=== PATIENT | female | born 1955 | race Caucasian/White ===

== ENCOUNTER 2019-09-01 16:42 | Inpatient (IN) ==
[~2019-09-01 16:42] MED LIST: ETOMIDATE 2 MG/ML 20 ML VIAL IV ONE; RAPID SEQUENCE INDUCTION BAG ONE; SODIUM BICARB 8.4% INJ 50 MEQ/50 ML SYR IV ONE; SUCCINYLCHOLINE CHLORIDE 20 MG/ML 10 ML VIAL IV ONE
[2019-09-01] MEDS ORDERED: PIPERACILL/TAZOBAC CONSULT ACTIVE PRN ×2 (16:59→22:07)
[2019-09-01] MEDS ORDERED: PIPERACILLIN/TAZOBACTAM 4.5 GM/120 ML BAG IV ONE (16:59)
[2019-09-01] MEDS ORDERED: STAT IV Infusion **Titration per Protocol STA ×3 (17:01→22:48)
--- NOTE | 2019-09-01 17:04 | Emergency Department Note ---
History of Present Illness General Chief complaint: Respiratory Arrest Stated complaint: BREATHING DIFF, UNRESPONESIVE Time Seen by Provider: 09/01/19 16:49 Source: family, EMS and old records reviewed Mode of arrival: EMS Limitations: clinical acuity (The patient was in extremis upon arrival.) History of Present Illness The patient is a 64-year-old female who presented to the emergency department for an evaluation of shortness of breath. We received a prehospital notification about this patient. The patient was having difficulty breathing and called 911. The patient was complaining of chest pain initially. The patient was having worsening difficulty breathing prior to arrival. Supplemental oxygen was applied but the patient ultimately started to have worsening symptoms. She started to lose her blood pressure. She was a di fficult IV access patient and had an intraosseous line placed in the left humeral head. She received 1 L of normal saline solution as well as doses of epinephrine. She was actively being bagged upon arrival. She did have return of pulses prior to coming to the resuscitation bay but did receive CPR prior to arrival. The patient offered chest pain complaints to the pellet machine operator. I did obtain further history from the patient's significant other. He was at work today and had no idea that she was calling 911 or having breathing difficulties. The patient has been complaining of cough for the last 6 months. She did not have any recent travel or fever according to the . She has been com plaining of no productive cough or GI symptoms. She has had no headaches. She has had some weakness which was generalized and did have a fall recently but did not strike her head according to her significant other. Home Medications Home Medications Medication Instructions Recorded Confirmed Type atorvastatin 40 mg PO DAILY 09/01/19 09/01/19 History Allergies Allergy/AdvReac Type Severity Reaction Status Date / Time mushroom Allergy Intermediate RASH Unverified 09/01/19 18:58 strawberry Allergy Intermediate Rash Verified 09/01/19 21:20 Past Med/Surg History Medical History HTN, goal to be determined Myocardial infarction acute Surgical History H/O section History of excision of hemangioma Social History Preferred Language: Kazakh Documentation Analyst Required: No Beliefs That Will Affect Care: None Current Living Situation: Family and Significant Other Feels Safe at Home: Declines to Answer Smoking Status: Unknown if ever smoked Review of Systems Unobtainable due to cognitive status History obtained from the prehospital personnel as well as the patient's significant other. History was limited secondary to the patient being in extremis. Physical Exam Vital Signs Vital Signs - 24 hr 09/01/19 17:00 09/01/19 17:01 09/01/19 17:05 Temperature Temperature Source Pulse Rate 117 H 119 H 120 H Pulse Rate [Apical] Pulse Rate from SpO2 Sensor Respiratory Rate 21 29 H 28 H Blood Pressure Blood Pressure [Right Arm] Blood Pressure Mean 25 Blood Pressure Mean [Right Arm] Pulse Oximetry Oxygen Delivery Method Oxygen Flow Rate Fraction of Inspired Oxygen Sepsis Recent Fever Within 48 Hours Sepsis New/Unexplained Change in Mental Status Sepsis Action Taken by Nursing Arterial BP Systolic Arterial BP Diastolic Arterial BP Mean Arterial Pulse Rate End-Tidal CO2 09/01/19 17:08 09/01/19 17:10 09/01/19 17:15 Temperature Temperature Source Pulse Rate 128 H 108 H 122 H Pulse Rate [Apical] Pulse Rate from SpO2 Sensor 108 H 113 H Respiratory Rate 29 H 31 H 26 H Blood Pressure Blood Pressure [Right Arm] Blood Pressure Mean Blood Pressure Mean [Right Arm] Pulse Oximetry 100 98 91 Oxygen Delivery Method Oxygen Flow Rate Fraction of Inspired Oxygen 100 Sepsis Recent Fever Within 48 Hours Sepsis New/Unexplained Change in Mental Status Sepsis Action Taken by Nursing Arterial BP Systolic Arterial BP Diastolic Arterial BP Mean Arterial Pulse Rate End-Tidal CO2 09/01/19 17:20 09/01/19 17:25 09/01/19 17:27 Temperature Temperature Source Pulse Rate 117 H 111 H Pulse Rate [Apical] Pulse Rate from SpO2 Sensor 117 H 111 H Respiratory Rate 30 H 25 H Blood Pressure Blood Pressure [Right Arm] Blood Pressure Mean Blood Pressure Mean [Right Arm] Pulse Oximetry 100 100 100 Oxygen Delivery Method Mechanical Vent Oxygen Flow Rate Fraction of Inspired Oxygen Sepsis Recent Fever Within 48 Hours Sepsis New/Unexplained Change in Mental Status Sepsis Action Taken by Nursing Arterial BP Systolic Arterial BP Diastolic Arterial BP Mean Arterial Pulse Rate End-Tidal CO2 09/01/19 17:28 09/01/19 17:30 09/01/19 17:31 Temperature Temperature Source Pulse Rate 110 H 110 H Pulse Rate [Apical] Pulse Rate from SpO2 Sensor 111 H 110 H Respiratory Rate Blood Pressure Blood Pressure [Right Arm] Blood Pressure Mean 31 Blood Pressure Mean [Right Arm] Pulse Oximetry 100 99 100 Oxygen Delivery Method Mechanical Vent Oxygen Flow Rate Fraction of Inspired Oxygen Sepsis Recent Fever Within 48 Hours Sepsis New/Unexplained Change in Mental Status Sepsis Action Taken by Nursing Arterial BP Systolic Arterial BP Diastolic Arterial BP Mean Arterial Pulse Rate End-Tidal CO2 18 18 09/01/19 17:35 09/01/19 17:40 09/01/19 17:41 Temperature Temperature Source Pulse Rate 110 H 103 H 102 H Pulse Rate [Apical] Pulse Rate from SpO2 Sensor 107 H 104 H Respiratory Rate 26 H Blood Pressure 76/50 L Blood Pressure [Right Arm] Blood Pressure Mean 58 Blood Pressure Mean [Right Arm] Pulse Oximetry 99 99 100 Oxygen Delivery Method Ambu-Bag Oxygen Flow Rate Fraction of Inspired Oxygen Sepsis Recent Fever Within 48 Hours No Sepsis New/Unexplained Change in Mental Status No Sepsis Action Taken by Nursing No Action Required Arterial BP Systolic Arterial BP Diastolic Arterial BP Mean Arterial Pulse Rate End-Tidal CO2 16 16 09/01/19 17:45 09/01/19 17:50 09/01/19 17:55 Temperature Temperature Source Pulse Rate 102 H 97 H 98 H Pulse Rate [Apical] Pulse Rate from SpO2 Sensor 101 H 98 H 98 H Respiratory Rate Blood Pressure Blood Pressure [Right Arm] Blood Pressure Mean Blood Pressure Mean [Right Arm] Pulse Oximetry 99 97 96 Oxygen Delivery Method Oxygen Flow Rate Fraction of Inspired Oxygen Sepsis Recent Fever Within 48 Hours Sepsis New/Unexplained Change in Mental Status Sepsis Action Taken by Nursing Arterial BP Systolic Arterial BP Diastolic Arterial BP Mean Arterial Pulse Rate End-Tidal CO2 20 20 20 09/01/19 18:00 09/01/19 18:03 09/01/19 18:05 Temperature Temperature Source Pulse Rate 72 71 Pulse Rate [Apical] Pulse Rate from SpO2 Sensor 72 71 Respiratory Rate Blood Pressure Blood Pressure [Right Arm] 80/40 L Blood Pressure Mean Blood Pressure Mean [Right Arm] 53 Pulse Oximetry 99 99 Oxygen Delivery Method Oxygen Flow Rate Fraction of Inspired Oxygen Sepsis Recent Fever Within 48 Hours Sepsis New/Unexplained Change in Mental Status Sepsis Action Taken by Nursing Arterial BP Systolic Arterial BP Diastolic Arterial BP Mean Arterial Pulse Rate End-Tidal CO2 23 23 09/01/19 18:10 09/01/19 18:15 09/01/19 18:16 Temperature Temperature Source Pulse Rate 48 L 129 H 129 H Pulse Rate [Apical] Pulse Rate from SpO2 Sensor 51 L 130 H 129 H Respiratory Rate Blood Pressure Blood Pressure [Right Arm] Blood Pressure Mean 71 Blood Pressure Mean [Right Arm] Pulse Oximetry 86 L 92 Oxygen Delivery Method Oxygen Flow Rate Fraction of Inspired Oxygen Sepsis Recent Fever Within 48 Hours Sepsis New/Unexplained Change in Mental Status Sepsis Action Taken by Nursing Arterial BP Systolic Arterial BP Diastolic Arterial BP Mean Arterial Pulse Rate End-Tidal CO2 11 21 21 09/01/19 18:20 09/01/19 18:25 09/01/19 18:30 Temperature Temperature Source Pulse Rate 126 H 119 H 113 H Pulse Rate [Apical] Pulse Rate from SpO2 Sensor 120 H 113 H Respiratory Rate 18 Blood Pressure 80/40 L Blood Pressure [Right Arm] Blood Pressure Mean 53 Blood Pressure Mean [Right Arm] Pulse Oximetry 100 100 Oxygen Delivery Method Oxygen Flow Rate 15 Fraction of Inspired Oxygen Sepsis Recent Fever Within 48 Hours Sepsis New/Unexplained Change in Mental Status Sepsis Action Taken by Nursing Arterial BP Systolic Arterial BP Diastolic Arterial BP Mean Arterial Pulse Rate End-Tidal CO2 19 29 24 09/01/19 18:35 09/01/19 18:38 09/01/19 19:10 Temperature Temperature Source Pulse Rate 108 H 106 H 104 H Pulse Rate [Apical] Pulse Rate from SpO2 Sensor 108 H Respiratory Rate Blood Pressure Blood Pressure [Right Arm] Blood Pressure Mean Blood Pressure Mean [Right Arm] Pulse Oximetry 100 100 Oxygen Delivery Method Oxygen Flow Rate 15 Fraction of Inspired Oxygen Sepsis Recent Fever Within 48 Hours Sepsis New/Unexplained Change in Mental Status Sepsis Action Taken by Nursing Arterial BP Systolic Arterial BP Diastolic Arterial BP Mean Arterial Pulse Rate 0 L End-Tidal CO2 23 21 09/01/19 19:14 09/01/19 19:15 09/01/19 19:20 Temperature Temperature Source Pulse Rate 108 H 108 H 109 H Pulse Rate [Apical] Pulse Rate from SpO2 Sensor 108 H 108 H 110 H Respiratory Rate Blood Pressure 68/47 L Blood Pressure [Right Arm] Blood Pressure Mean 56 Blood Pressure Mean [Right Arm] Pulse Oximetry 100 100 100 Oxygen Delivery Method Oxygen Flow Rate Fraction of Inspired Oxygen Sepsis Recent Fever Within 48 Hours Sepsis New/Unexplained Change in Mental Status Sepsis Action Taken by Nursing Arterial BP Systolic Arterial BP Diastolic Arterial BP Mean Arterial Pulse Rate End-Tidal CO2 19 17 18 09/01/19 19:25 09/01/19 19:29 09/01/19 19:30 Temperature Temperature Source Pulse Rate 111 H 110 H 110 H Pulse Rate [Apical] Pulse Rate from SpO2 Sensor 110 H 110 H 110 H Respiratory Rate Blood Pressure Blood Pressure [Right Arm] Blood Pressure Mean 45 Blood Pressure Mean [Right Arm] Pulse Oximetry 100 100 100 Oxygen Delivery Method Oxygen Flow Rate Fraction of Inspired Oxygen Sepsis Recent Fever Within 48 Hours Sepsis New/Unexplained Change in Mental Status Sepsis Action Taken by Nursing Arterial BP Systolic 300 Arterial BP Diastolic 0 Arterial BP Mean 111 Arterial Pulse Rate 109 H 0 L End-Tidal CO2 19 15 15 09/01/19 19:35 09/01/19 19:39 09/01/19 19:40 Temperature Temperature Source Pulse Rate 108 H 108 H 107 H Pulse Rate [Apical] Pulse Rate from SpO2 Sensor 108 H 107 H Respiratory Rate 18 Blood Pressure Blood Pressure [Right Arm] Blood Pressure Mean Blood Pressure Mean [Right Arm] Pulse Oximetry 100 100 100 Oxygen Delivery Method Oxygen Flow Rate Fraction of Inspired Oxygen Sepsis Recent Fever Within 48 Hours Sepsis New/Unexplained Change in Mental Status Sepsis Action Taken by Nursing Arterial BP Systolic 27 19 Arterial BP Diastolic 25 18 Arterial BP Mean 26 18 Arterial Pulse Rate 0 L 0 L End-Tidal CO2 16 17 09/01/19 19:45 09/01/19 19:48 09/01/19 19:50 Temperature Temperature Source Pulse Rate 106 H 105 H 105 H Pulse Rate [Apical] Pulse Rate from SpO2 Sensor 106 H 105 H Respiratory Rate 26 H Blood Pressure Blood Pressure [Right Arm] Blood Pressure Mean Blood Pressure Mean [Right Arm] Pulse Oximetry 99 100 99 Oxygen Delivery Method Oxygen Flow Rate Fraction of Inspired Oxygen Sepsis Recent Fever Within 48 Hours Sepsis New/Unexplained Change in Mental Status Sepsis Action Taken by Nursing Arterial BP Systolic 9 48 Arterial BP Diastolic 27 Arterial BP Mean 4 35 Arterial Pulse Rate 0 L 0 L End-Tidal CO2 18 18 09/01/19 19:55 09/01/19 20:00 09/01/19 20:01 Temperature Temperature Source Pulse Rate 111 H 109 H 109 H Pulse Rate [Apical] Pulse Rate from SpO2 Sensor 112 H 109 H 109 H Respiratory Rate Blood Pressure Blood Pressure [Right Arm] Blood Pressure Mean 55 Blood Pressure Mean [Right Arm] Pulse Oximetry 100 100 100 Oxygen Delivery Method Oxygen Flow Rate Fraction of Inspired Oxygen Sepsis Recent Fever Within 48 Hours Sepsis New/Unexplained Change in Mental Status Sepsis Action Taken by Nursing Arterial BP Systolic 61 71 71 Arterial BP Diastolic 35 41 41 Arterial BP Mean 42 48 48 Arterial Pulse Rate 111 H 109 H 109 H End-Tidal CO2 31 25 22 09/01/19 20:05 09/01/19 20:10 09/01/19 20:12 Temperature Temperature Source Pulse Rate 108 H 109 H 110 H Pulse Rate [Apical] Pulse Rate from SpO2 Sensor 109 H 109 H 110 H Respiratory Rate Blood Pressure 53/43 L Blood Pressure [Right Arm] Blood Pressure Mean 44 Blood Pressure Mean [Right Arm] Pulse Oximetry 100 100 100 Oxygen Delivery Method Oxygen Flow Rate Fraction of Inspired Oxygen Sepsis Recent Fever Within 48 Hours Sepsis New/Unexplained Change in Mental Status Sepsis Action Taken by Nursing Arterial BP Systolic 75 100 88 Arterial BP Diastolic 44 39 53 Arterial BP Mean 54 66 62 Arterial Pulse Rate 152 H 141 H 110 H End-Tidal CO2 38 28 29 09/01/19 20:15 09/01/19 20:16 09/01/19 20:20 Temperature Temperature Source Pulse Rate 112 H 113 H 116 H Pulse Rate [Apical] Pulse Rate from SpO2 Sensor 112 H 116 H Respiratory Rate 22 Blood Pressure 84/50 L Blood Pressure [Right Arm] Blood Pressure Mean 61 Blood Pressure Mean [Right Arm] Pulse Oximetry 100 100 100 Oxygen Delivery Method Oxygen Flow Rate Fraction of Inspired Oxygen Sepsis Recent Fever Within 48 Hours Sepsis New/Unexplained Change in Mental Status Sepsis Action Taken by Nursing Arterial BP Systolic 86 84 Arterial BP Diastolic 51 51 Arterial BP Mean 60 59 Arterial Pulse Rate 112 H 116 H End-Tidal CO2 27 23 09/01/19 20:21 09/01/19 20:34 09/01/19 22:10 Temperature 31 C L Temperature Source Rectal Pulse Rate 114 H 114 H Pulse Rate [Apical] 81 Pulse Rate from SpO2 Sensor 114 H Respiratory Rate 22 16 Blood Pressure Blood Pressure [Right Arm] 87/36 L Blood Pressure Mean 65 Blood Pressure Mean [Right Arm] 53 Pulse Oximetry 100 100 100 Oxygen Delivery Method Mechanical Vent Mechanical Vent Oxygen Flow Rate Fraction of Inspired Oxygen Sepsis Recent Fever Within 48 Hours Sepsis New/Unexplained Change in Mental Status Sepsis Action Taken by Nursing Arterial BP Systolic 87 Arterial BP Diastolic 50 Arterial BP Mean 59 Arterial Pulse Rate 120 H End-Tidal CO2 25 09/01/19 22:15 09/01/19 22:20 Temperature 30.9 C L Temperature Source Rectal Pulse Rate 86 Pulse Rate [Apical] 86 Pulse Rate from SpO2 Sensor Respiratory Rate 14 16 Blood Pressure Blood Pressure [Right Arm] 96/39 L Blood Pressure Mean Blood Pressure Mean [Right Arm] 58 Pulse Oximetry 96 93 Oxygen Delivery Method Mechanical Vent Oxygen Flow Rate Fraction of Inspired Oxygen 50 Sepsis Recent Fever Within 48 Hours Sepsis New/Unexplained Change in Mental Status Sepsis Action Taken by Nursing Arterial BP Systolic Arterial BP Diastolic Arterial BP Mean Arterial Pulse Rate End-Tidal CO2 15 GENERAL: The patient was pale with very labored breathing. The patient appeared to be in extremis. EYES: The conjunctivae are pale. The pupils are round and reactive. EARS, NOSE, MOUTH AND THROAT: The nose is without any evidence of any deformity. Mucous membranes are dry. NECK: The neck is nontender and supple. RESPIRATORY: Shallow and ineffective respirations were noted. Poor air movement was noted throughout. CARDIOVASCULAR: Tachycardic and regular rate was noted to auscultation. GASTROINTESTINAL: The abdomen was moderately distended. There is no specific tenderness but the patient was obtunded at the time of the evaluation. MUSCULOSKELETAL/EXTREMITIES: There is no evidence of gross deformity full range of motion is noted in the hips and shoulders. There were multiple areas of ecchymosis over both lower extremities. There is more ecchymosis on the left lower extremity. SKIN: Skin was cool and pale. No pedal edema was noted. NEUROLOGIC: The patient was unable to answer questions. I am unable to assess orientation at this time. Patient was moving all extremities well. Procedures Free Text Procedures Femoral Central Venous Catheter Indication: Cardiac arrest Catheter Type: Triple-lumen Location: Left femoral vein Verbal consent was obtained after the risks and benefits were explained, including but not limited to intra-abdominal injury, vessel injury, bleeding, scarring, infection, pain, and bone/joint/nerve damage. At this time, the risks of the procedure are less than the risks of NOT performing the procedure. A time out was taken and the correct patient and site identified. The patient was placed in the supine position and the skin was prepped in the standard fashion with chlorhexidine and full sterile drapes applied. The proper landmarks were identified with ultrasound, and the needle was inserted through the skin in the standard fashion. The needle was carefully advanced into blood vessel lumen with ultrasound guidance. The guidewire was placed uneventfully. The vessel is dilated and the catheter was placed. It was sutured into position. There was good blood return from all ports. The patient tolerated the procedure well and there were no complications. Course Course 1755: I discussed this case with the mixing machine tender cork rod, . He will review the patient's laboratory and radiographic studies and discussed the case with me further. 1744: I discussed the patient's condition with her significant other. He was able to help more with a history but was unaware that the patient was experiencing shortness of breath today because he was at work. 1954: I discussed the case with Dr. Valdez for suspected hemoperitoneum. He is agreed to evaluate the patient in the emergency department. 1999: I discussed this case with Dr. Ribeiro. He is aware that the patient is going to go to the OR and that she is in extremis and will likely be sent to the ICU afterwards. Administered Medications Discontinued Medications Gelatin (Surgifoam Sponge 100 (Large)) Confirm Administered Dose 1 ea .ROUTE .[facility] ONE Stop: 09/01/19 21:18 Last Admin: 09/01/19 21:44 Dose: Not Given Documented by: [id number] Piperacillin Sod/Tazobactam Sod (Zosyn) 4.5 gm in 120 mls @ 240 mls/hr IV NOW ONE Stop: 09/01/19 17:28 Last Infusion: 09/02/19 00:36 Dose: 0 mls/hr Documented by: [id number] Admin: 09/01/19 17:30 Dose: 240 mls/hr Documented by: [id number] Norepinephrine Bitartrate 8 mg (/ Dextrose) 508 mls @ 43.72 mls/hr IV .[id number] [facility]; Protocol Stop: 10/01/19 17:14 Last Titration: 09/02/19 00:40 Dose: 0.15 mcg/kg/min, 43.7 mls/hr Documented by: [id number] Titration: 09/02/19 00:35 Dose: 0.2 mcg/kg/min, 58.3 mls/hr Documented by: [id number] Titration: 09/02/19 00:30 Dose: 0.25 mcg/kg/min, 72.9 mls/hr Documented by: [id number] Titration: 09/02/19 00:25 Dose: 0.3 mcg/kg/min, 87.4 mls/hr Documented by: [id number] Titration: 09/02/19 00:20 Dose: 0.35 mcg/kg/min, 102 mls/hr Documented by: [id number] Titration: 09/02/19 00:15 Dose: 0.4 mcg/kg/min, 116.6 mls/hr Documented by: [id number] Titration: 09/02/19 00:10 Dose: 0.45 mcg/kg/min, 131.2 mls/hr Documented by: [id number] Titration: 09/02/19 00:05 Dose: 0.5 mcg/kg/min, 145.7 mls/hr Documented by: [id number] Titration: 09/02/19 00:00 Dose: 0.55 mcg/kg/min, 160.3 mls/hr Documented by: [id number] Admin: 09/01/19 22:18 Dose: 0.6 mcg/kg/min, 174.9 mls/hr Documented by: [id number] Cosigned by: [id number] Titration: 09/01/19 22:18 Dose: 0.3 mcg/kg/min, 87.4 mls/hr Documented by: [id number] Cosigned by: [id number] Titration: 09/01/19 17:59 Dose: 0.3 mcg/kg/min, 87.4 mls/hr Documented by: [id number] Titration: 09/01/19 17:48 Dose: 0.25 mcg/kg/min, 72.9 mls/hr Documented by: [id number] Titration: 09/01/19 17:26 Dose: 0.2 mcg/kg/min, 58.3 mls/hr Documented by: [id number] Admin: 09/01/19 17:10 Dose: 0.1 mcg/kg/min, 29.1 mls/hr Documented by: [id number] Cosigned by: [id number] Sodium Chloride (Nss 1000ml) 500 mls @ 999 mls/hr IV .Q31M ONE Stop: 09/01/19 17:59 Last Infusion: 09/02/19 00:35 Dose: 0 mls/hr Documented by: [id number] Admin: 09/01/19 16:52 Dose: 999 mls/hr Documented by: [id number] Sodium Chloride (Nss 1000ml) 500 mls @ 999 mls/hr IV .Q31M ONE Stop: 09/01/19 18:01 Last Infusion: 09/02/19 00:35 Dose: 0 mls/hr Documented by: [id number] Admin: 09/01/19 17:48 Dose: 999 mls/hr Documented by: [id number] Sodium Chloride (Nss 1000ml) 1,000 mls @ 999 mls/hr IV .Q1H1M ONE Stop: 09/01/19 19:12 Last Infusion: 09/02/19 00:34 Dose: 0 mls/hr Documented by: [id number] Admin: 09/01/19 20:12 Dose: 999 mls/hr Documented by: [id number] Vasopressin 20 units/ Sodium (Chloride) 101 mls @ 12.12 mls/hr IV .Q8H20M TANG Stop: 10/01/19 19:29 Last Admin: 09/02/19 00:21 Dose: 0.04 unit/min, 12.1 mls/hr Documented by: [id number] Cosigned by: [id number] Infusion: 09/02/19 00:21 Dose: 0.04 unit/min, 12.1 mls/hr Documented by: [id number] Cosigned by: [id number] Admin: 09/01/19 19:44 Dose: 0.04 unit/min, 12.1 mls/hr Documented by: [id number] Cosigned by: [id number] Calcium Chloride 1,000 mg/ (Sodium Chloride) 60 mls @ 240 mls/hr IV NOW ONE Stop: 09/01/19 20:14 Last Infusion: 09/02/19 00:36 Dose: 0 mls/hr Documented by: [id number] Admin: 09/01/19 20:12 Dose: 240 mls/hr Documented by: [id number] Hydrocortisone Sodium (Succinate 100 mg/ Syringe) 2 mls @ 4 mls/min IV NOW ONE Stop: 09/01/19 20:01 Last Admin: 09/01/19 20:12 Dose: 4 mls/min Documented by: [id number] Tranexamic Acid (Tranexamic Acid / 0.7% Nacl) 1,000 mg in 100 mls @ 600 mls/hr IV NOW ONE Stop: 09/01/19 20:09 Last Infusion: 09/02/19 00:36 Dose: 0 mls/hr Documented by: [id number] Admin: 09/01/19 20:11 Dose: 600 mls/hr Documented by: [id number] Pantoprazole Sodium 80 mg/ (Dextrose) 100 mls @ 400 mls/hr IV NOW ONE Stop: 09/01/19 20:29 Last Infusion: 09/02/19 00:35 Dose: 0 mls/hr Documented by: [id number] Admin: 09/01/19 20:20 Dose: 400 mls/hr Documented by: [id number] Piperacillin Sod/Tazobactam (Sod 3.375 gm/ Dextrose) 115 mls @ 28.75 mls/hr IV Q8H TANG Stop: 09/12/19 00:00 Last Admin: 09/01/19 23:32 Dose: 28.8 mls/hr Documented by: [id number] Sodium Bicarbonate 150 meq/ (Dextrose) 1,150 mls @ 150 mls/hr IV .Q7H40M [facility] Stop: 10/01/19 22:44 Last Admin: 09/01/19 23:32 Dose: 150 mls/hr Documented by: [id number] Epinephrine HCl 4 mg/ Dextrose 254 mls @ 55.378 mls/hr IV .Q4H36M [facility]; Protocol Stop: 10/01/19 22:59 Last Titration: 09/02/19 00:30 Dose: 0.08 mcg/kg/min, 23.3 mls/hr Documented by: [id number] Titration: 09/02/19 00:15 Dose: 0.1 mcg/kg/min, 29.1 mls/hr Documented by: [id number] Titration: 09/02/19 00:00 Dose: 0.15 mcg/kg/min, 43.7 mls/hr Documented by: [id number] Titration: 09/01/19 23:42 Dose: 0.19 mcg/kg/min, 55.4 mls/hr Documented by: [id number] Admin: 09/01/19 23:31 Dose: 0.2 mcg/kg/min, 58.3 mls/hr Documented by: [id number] Cosigned by: [id number] Calcium Chloride 1,000 mg/ (Sodium Chloride) 60 mls @ 240 mls/hr IV NOW STA Stop: 09/01/19 23:58 Last Admin: 09/02/19 00:34 Dose: 240 mls/hr Documented by: [id number] Miscellaneous () Confirm Administered Dose 1 ea .ROUTE .STK-MED ONE Stop: 09/01/19 16:41 Last Admin: 09/01/19 17:30 Dose: Not Given Documented by: [id number] Miscellaneous () 1 ea N/A NOW STA Stop: 09/01/19 17:02 Last Admin: 09/01/19 17:48 Dose: Not Given Documented by: [id number] Miscellaneous (Floseal Hemostatic Matrix 10ml) 10 ml TOP ONCE ONE Stop: 09/01/19 21:19 Last Admin: 09/01/19 21:43 Dose: Not Given Documented by: [id number] Sodium Bicarbonate (Sodium Bicarbonate 8.4%) Confirm Administered Dose 100 meq .ROUTE .STK-MED ONE Stop: 09/01/19 20:00 Last Admin: 09/01/19 20:12 Dose: 100 meq Documented by: [id number] Sodium Bicarbonate (Sodium Bicarbonate 8.4%) Confirm Administered Dose 100 meq .ROUTE .STK-MED ONE Stop: 09/01/19 22:34 Last Admin: 09/01/19 22:38 Dose: 100 meq Documented by: [id number] Thrombin (Recothrom Kit) Confirm Administered Dose 20,000 units .ROUTE .STK-MED ONE Stop: 09/01/19 21:19 Last Admin: 09/01/19 21:44 Dose: Not Given Documented by: [id number] Critical Care Time Critical Care Time: Yes Total Critical Care Time: 180 I have personally spent greater than 180 minutes of critical care time in the direct management of this patient. This includes bedside care, interpretation of diagnostic studies, and testing, discussion with consultants, patient, and family members, and other required patient management activities. This 180 minutes is in excess of all separately billable procedures. Medical Decision Making Differential Diagnosis Reactive airway disease, pneumonia, pneumothorax, COPD, CHF, infections, cardiac ischemia, pulmonary embolism, musculoskeletal, gastrointestinal, as well as other pathologies. Medical Records Attestation: I reviewed the patient's medical records. Home Medications Current Medication List: was personally reviewed by me Laboratory Data Attestation: I reviewed the patient's lab results. Result diagrams: 09/02/19 00:54 09/01/19 22:35 Lab Results 09/01/19 09/01/19 09/01/19 Range/Units 17:08 17:08 17:08 WBC 6.09 (4.8-10.8) K/uL RBC 1.89 L (4.2-5.4) M/uL Hgb 5.6 L* (12.0-16.0) g/dL POC Hgb Hct 18.9 L* (37-47) % POC Hct (37-47) % MCV 100.0 (80-100) fL MCH 29.6 (25-34) pg MCHC 29.6 L (32-36) g/dL RDW Std Deviation 57.5 H (36.4-46.3) fL RDW Coeff of Binta 15.8 H (11.5-14.5) % Plt Count 69 L (130-400) K/uL MPV 12.3 H (7.4-10.4) fL Immature Gran % (Auto) 5.1 % Neut % (Auto) 56.1 % Lymph % (Auto) 32.2 % [place] % (Auto) 5.6 % Eos % (Auto) 0.8 % Baso % (Auto) 0.2 % Reticulocyte % (Auto) (0.5-2.0) % Immature Gran # (Auto) 0.31 H (0.00-0.02) K/uL Neut # (Auto) 3.42 (1.4-6.5) K/uL Lymph # (Auto) 1.96 (1.2-3.4) K/uL [place] # (Auto) 0.34 (0.11-0.59) K/uL Eos # (Auto) 0.05 (0-0.5) K/uL Baso # (Auto) 0.01 (0-0.2) K/uL Reticulocyte # (0.02-0.10) 10^6/uL Absolute Nucleated RBC (0-0) K/uL Nucleated RBC % (auto) % Platelet Estimate Decreased L (Normal) Echinocytes 2+ PT (9.0-12.0) Seconds INR (0.9-1.1) APTT (21.0-31.0) Seconds PTT Ratio D-Dimer > 50256 H* (0-500) ug/L FEU Sample Site POC pH (7.35-7.45) POC pCO2 (35-46) mmHg POC pO2 (80-95) mmHg POC HCO3 (19-24) uriel/L POC Base Excess (-9-1.8) uriel/L ABG pH (Temp Correct) (7.35-7.45) ABG pCO2 (Temp Corrct (35-46) mmHg POC ABG pO2 at Pt Temp POC ABG O2 Sat (90-95) % Nathan Test VBG pH (7.36-7.41) VBG pCO2 (38-50) mmHg VBG pO2 mmHg VBG HCO3 mmol/L VBG O2 Saturation % VBG Base Excess mEq/L Barometric Pressure mm/Hg O2 Delivery Device POC O2 Rate Minute Ventilation POC FiO2 % Tidal Volume PEEP POC Sodium (135-144) mmol/L Sodium 148 H (136-145) mmol/L POC Potassium (3.3-5.0) mmol/L Potassium 4.0 (3.5-5.1) mmol/L POC Chloride (101-112) mmol/L Chloride 116 H (98-107) mmol/L Carbon Dioxide 13 L (21-32) mmol/L POC Total CO2 (24-31) mEq/l Anion Gap 19.0 H (3-11) POC Anion Gap (16-25) mmol/L POC BUN (7-18) mg/dl BUN 12 (7-18) mg/dl Creatinine 1.41 H (0.6-1.2) mg/dl POC Creatinine (0.6-1.3) mg/dl Est Cr Clr Drug Dosing Not Reportable Est GFR ( Amer) 45.8 Est GFR (Non-Af Amer) 39.5 BUN/Creatinine Ratio 8.3 L (10-20) Glucose 180 H (70-99) mg/dl POC Glucose (other) (70-99) mg/dl Lactate (0.4-2.0) mmol/L Calcium 7.6 L (8.5-10.1) mg/dl POC Ioniz Calcium Harish (1.12-1.32) mmol/l Magnesium 2.5 H (1.8-2.4) mg/dl Total Bilirubin 0.6 (0.2-1) mg/dl AST 152 H (15-37) U/L ALT 89 H (12-78) U/L Alkaline Phosphatase 193 H (45-117) U/L Troponin I 0.168 H* (0-0.045) ng/ml NT-Pro-B Natriuret Pep 400 (0-900) pg/ml Total Protein 3.4 L (6.4-8.2) gm/dl Albumin 1.6 L (3.4-5.0) gm/dl Globulin 1.8 L (2.5-4.0) gm/dl Albumin/Globulin Ratio 0.9 (0.9-2) Procalcitonin (0-0.5) ng/ml Influenza Type A (PCR) (Neg) Influenza Type B (PCR) (Neg) Blood Type Blood Type Recheck Antibody Screen Crossmatch Draw and Hold 09/01/19 09/01/19 09/01/19 Range/Units 17:08 17:08 17:08 WBC (4.8-10.8) K/uL RBC (4.2-5.4) M/uL Hgb (12.0-16.0) g/dL POC Hgb Hct (37-47) % POC Hct (37-47) % MCV (80-100) fL MCH (25-34) pg MCHC (32-36) g/dL RDW Std Deviation (36.4-46.3) fL RDW Coeff of Binta (11.5-14.5) % Plt Count (130-400) K/uL MPV (7.4-10.4) fL Immature Gran % (Auto) % Neut % (Auto) % Lymph % (Auto) % [place] % (Auto) % Eos % (Auto) % Baso % (Auto) % Reticulocyte % (Auto) (0.5-2.0) % Immature Gran # (Auto) (0.00-0.02) K/uL Neut # (Auto) (1.4-6.5) K/uL Lymph # (Auto) (1.2-3.4) K/uL [place] # (Auto) (0.11-0.59) K/uL Eos # (Auto) (0-0.5) K/uL Baso # (Auto) (0-0.2) K/uL Reticulocyte # (0.02-0.10) 10^6/uL Absolute Nucleated RBC (0-0) K/uL Nucleated RBC % (auto) % Platelet Estimate (Normal) Echinocytes PT (9.0-12.0) Seconds INR (0.9-1.1) APTT (21.0-31.0) Seconds PTT Ratio D-Dimer (0-500) ug/L FEU Sample Site POC pH (7.35-7.45) POC pCO2 (35-46) mmHg POC pO2 (80-95) mmHg POC HCO3 (19-24) uriel/L POC Base Excess (-9-1.8) uriel/L ABG pH (Temp Correct) (7.35-7.45) ABG pCO2 (Temp Corrct (35-46) mmHg POC ABG pO2 at Pt Temp POC ABG O2 Sat (90-95) % Nathan Test VBG pH 6.80 L (7.36-7.41) VBG pCO2 78 H (38-50) mmHg VBG pO2 51 mmHg VBG HCO3 12 mmol/L VBG O2 Saturation < 60.0 % VBG Base Excess -20.4 mEq/L Barometric Pressure 722.3 mm/Hg O2 Delivery Device POC O2 Rate Minute Ventilation POC FiO2 % Tidal Volume PEEP POC Sodium (135-144) mmol/L Sodium (136-145) mmol/L POC Potassium (3.3-5.0) mmol/L Potassium (3.5-5.1) mmol/L POC Chloride (101-112) mmol/L Chloride (98-107) mmol/L Carbon Dioxide (21-32) mmol/L POC Total CO2 (24-31) mEq/l Anion Gap (3-11) POC Anion Gap (16-25) mmol/L POC BUN (7-18) mg/dl BUN (7-18) mg/dl Creatinine (0.6-1.2) mg/dl POC Creatinine (0.6-1.3) mg/dl Est Cr Clr Drug Dosing Est GFR ( Amer) Est GFR (Non-Af Amer) BUN/Creatinine Ratio (10-20) Glucose (70-99) mg/dl POC Glucose (other) (70-99) mg/dl Lactate 17.7 H* (0.4-2.0) mmol/L Calcium (8.5-10.1) mg/dl POC Ioniz Calcium Harish (1.12-1.32) mmol/l Magnesium (1.8-2.4) mg/dl Total Bilirubin (0.2-1) mg/dl AST (15-37) U/L ALT (12-78) U/L Alkaline Phosphatase (45-117) U/L Troponin I (0-0.045) ng/ml NT-Pro-B Natriuret Pep (0-900) pg/ml Total Protein (6.4-8.2) gm/dl Albumin (3.4-5.0) gm/dl Globulin (2.5-4.0) gm/dl Albumin/Globulin Ratio (0.9-2) Procalcitonin 0.09 (0-0.5) ng/ml Influenza Type A (PCR) (Neg) Influenza Type B (PCR) (Neg) Blood Type Blood Type Recheck Antibody Screen Crossmatch Draw and Hold 09/01/19 09/01/19 09/01/19 Range/Units 17:08 17:11 17:15 WBC (4.8-10.8) K/uL RBC (4.2-5.4) M/uL Hgb (12.0-16.0) g/dL POC Hgb TNP TNP Hct (37-47) % POC Hct < 15 L* < 15 L* (37-47) % MCV (80-100) fL MCH (25-34) pg MCHC (32-36) g/dL RDW Std Deviation (36.4-46.3) fL RDW Coeff of Binta (11.5-14.5) % Plt Count (130-400) K/uL MPV (7.4-10.4) fL Immature Gran % (Auto) % Neut % (Auto) % Lymph % (Auto) % [place] % (Auto) % Eos % (Auto) % Baso % (Auto) % Reticulocyte % (Auto) (0.5-2.0) % Immature Gran # (Auto) (0.00-0.02) K/uL Neut # (Auto) (1.4-6.5) K/uL Lymph # (Auto) (1.2-3.4) K/uL [place] # (Auto) (0.11-0.59) K/uL Eos # (Auto) (0-0.5) K/uL Baso # (Auto) (0-0.2) K/uL Reticulocyte # (0.02-0.10) 10^6/uL Absolute Nucleated RBC (0-0) K/uL Nucleated RBC % (auto) % Platelet Estimate (Normal) Echinocytes PT (9.0-12.0) Seconds INR (0.9-1.1) APTT (21.0-31.0) Seconds PTT Ratio D-Dimer (0-500) ug/L FEU Sample Site POC pH (7.35-7.45) POC pCO2 (35-46) mmHg POC pO2 (80-95) mmHg POC HCO3 (19-24) uriel/L POC Base Excess (-9-1.8) uriel/L ABG pH (Temp Correct) (7.35-7.45) ABG pCO2 (Temp Corrct (35-46) mmHg POC ABG pO2 at Pt Temp POC ABG O2 Sat (90-95) % Nathan Test VBG pH (7.36-7.41) VBG pCO2 (38-50) mmHg VBG pO2 mmHg VBG HCO3 mmol/L VBG O2 Saturation % VBG Base Excess mEq/L Barometric Pressure mm/Hg O2 Delivery Device POC O2 Rate Minute Ventilation POC FiO2 % Tidal Volume PEEP POC Sodium 143 143 (135-144) mmol/L Sodium (136-145) mmol/L POC Potassium 3.9 3.9 (3.3-5.0) mmol/L Potassium (3.5-5.1) mmol/L POC Chloride 110 111 (101-112) mmol/L Chloride (98-107) mmol/L Carbon Dioxide (21-32) mmol/L POC Total CO2 13 L 13 L (24-31) mEq/l Anion Gap (3-11) POC Anion Gap 25.0 25.0 (16-25) mmol/L POC BUN 11 10 (7-18) mg/dl BUN (7-18) mg/dl Creatinine (0.6-1.2) mg/dl POC Creatinine 1.3 1.4 H (0.6-1.3) mg/dl Est Cr Clr Drug Dosing Est GFR ( Amer) Est GFR (Non-Af Amer) BUN/Creatinine Ratio (10-20) Glucose (70-99) mg/dl POC Glucose (other) 165 H 166 H (70-99) mg/dl Lactate (0.4-2.0) mmol/L Calcium (8.5-10.1) mg/dl POC Ioniz Calcium Harish 1.06 L 1.06 L (1.12-1.32) mmol/l Magnesium (1.8-2.4) mg/dl Total Bilirubin (0.2-1) mg/dl AST (15-37) U/L ALT (12-78) U/L Alkaline Phosphatase (45-117) U/L Troponin I (0-0.045) ng/ml NT-Pro-B Natriuret Pep (0-900) pg/ml Total Protein (6.4-8.2) gm/dl Albumin (3.4-5.0) gm/dl Globulin (2.5-4.0) gm/dl Albumin/Globulin Ratio (0.9-2) Procalcitonin (0-0.5) ng/ml Influenza Type A (PCR) (Neg) Influenza Type B (PCR) (Neg) Blood Type O Negative Blood Type Recheck Antibody Screen NEGATIVE Crossmatch See Detail Draw and Hold Cancelled 09/01/19 09/01/19 09/01/19 Range/Units 17:29 18:17 18:17 WBC 6.45 (4.8-10.8) K/uL RBC 1.50 L (4.2-5.4) M/uL Hgb 4.5 L* (12.0-16.0) g/dL POC Hgb Hct 14.6 L* (37-47) % POC Hct (37-47) % MCV 97.3 (80-100) fL MCH 30.0 (25-34) pg MCHC 30.8 L (32-36) g/dL RDW Std Deviation 56.4 H (36.4-46.3) fL RDW Coeff of Binta 15.9 H (11.5-14.5) % Plt Count 53 L (130-400) K/uL MPV 11.3 H (7.4-10.4) fL Immature Gran % (Auto) 8.4 % Neut % (Auto) 57.2 % Lymph % (Auto) 29.9 % [place] % (Auto) 3.1 % Eos % (Auto) 1.1 % Baso % (Auto) 0.3 % Reticulocyte % (Auto) 3.0 H (0.5-2.0) % Immature Gran # (Auto) 0.54 H (0.00-0.02) K/uL Neut # (Auto) 3.69 (1.4-6.5) K/uL Lymph # (Auto) 1.93 (1.2-3.4) K/uL [place] # (Auto) 0.20 (0.11-0.59) K/uL Eos # (Auto) 0.07 (0-0.5) K/uL Baso # (Auto) 0.02 (0-0.2) K/uL Reticulocyte # 0.05 (0.02-0.10) 10^6/uL Absolute Nucleated RBC 0.06 H (0-0) K/uL Nucleated RBC % (auto) 0.9 % Platelet Estimate (Normal) Echinocytes 2+ PT (9.0-12.0) Seconds INR (0.9-1.1) APTT (21.0-31.0) Seconds PTT Ratio D-Dimer (0-500) ug/L FEU Sample Site POC pH (7.35-7.45) POC pCO2 (35-46) mmHg POC pO2 (80-95) mmHg POC HCO3 (19-24) uriel/L POC Base Excess (-9-1.8) uriel/L ABG pH (Temp Correct) (7.35-7.45) ABG pCO2 (Temp Corrct (35-46) mmHg POC ABG pO2 at Pt Temp POC ABG O2 Sat (90-95) % Nathan Test VBG pH (7.36-7.41) VBG pCO2 (38-50) mmHg VBG pO2 mmHg VBG HCO3 mmol/L VBG O2 Saturation % VBG Base Excess mEq/L Barometric Pressure mm/Hg O2 Delivery Device POC O2 Rate Minute Ventilation POC FiO2 % Tidal Volume PEEP POC Sodium (135-144) mmol/L Sodium (136-145) mmol/L POC Potassium (3.3-5.0) mmol/L Potassium (3.5-5.1) mmol/L POC Chloride (101-112) mmol/L Chloride (98-107) mmol/L Carbon Dioxide (21-32) mmol/L POC Total CO2 (24-31) mEq/l Anion Gap (3-11) POC Anion Gap (16-25) mmol/L POC BUN (7-18) mg/dl BUN (7-18) mg/dl Creatinine (0.6-1.2) mg/dl POC Creatinine (0.6-1.3) mg/dl Est Cr Clr Drug Dosing Est GFR ( Amer) Est GFR (Non-Af Amer) BUN/Creatinine Ratio (10-20) Glucose (70-99) mg/dl POC Glucose (other) (70-99) mg/dl Lactate (0.4-2.0) mmol/L Calcium (8.5-10.1) mg/dl POC Ioniz Calcium Harish (1.12-1.32) mmol/l Magnesium (1.8-2.4) mg/dl Total Bilirubin (0.2-1) mg/dl AST (15-37) U/L ALT (12-78) U/L Alkaline Phosphatase (45-117) U/L Troponin I (0-0.045) ng/ml NT-Pro-B Natriuret Pep (0-900) pg/ml Total Protein (6.4-8.2) gm/dl Albumin (3.4-5.0) gm/dl Globulin (2.5-4.0) gm/dl Albumin/Globulin Ratio (0.9-2) Procalcitonin (0-0.5) ng/ml Influenza Type A (PCR) Neg for Influ A (Neg) Influenza Type B (PCR) Neg for Influ B (Neg) Blood Type Blood Type Recheck O Negative Antibody Screen Crossmatch Draw and Hold 09/01/19 09/01/19 09/01/19 Range/Units 19:40 19:44 19:54 WBC (4.8-10.8) K/uL RBC (4.2-5.4) M/uL Hgb (12.0-16.0) g/dL POC Hgb TNP 6.5 L* Hct (37-47) % POC Hct < 15 L* 19 L* (37-47) % MCV (80-100) fL MCH (25-34) pg MCHC (32-36) g/dL RDW Std Deviation (36.4-46.3) fL RDW Coeff of Binta (11.5-14.5) % Plt Count (130-400) K/uL MPV (7.4-10.4) fL Immature Gran % (Auto) % Neut % (Auto) % Lymph % (Auto) % [place] % (Auto) % Eos % (Auto) % Baso % (Auto) % Reticulocyte % (Auto) (0.5-2.0) % Immature Gran # (Auto) (0.00-0.02) K/uL Neut # (Auto) (1.4-6.5) K/uL Lymph # (Auto) (1.2-3.4) K/uL [place] # (Auto) (0.11-0.59) K/uL Eos # (Auto) (0-0.5) K/uL Baso # (Auto) (0-0.2) K/uL Reticulocyte # (0.02-0.10) 10^6/uL Absolute Nucleated RBC (0-0) K/uL Nucleated RBC % (auto) % Platelet Estimate (Normal) Echinocytes PT (9.0-12.0) Seconds INR (0.9-1.1) APTT (21.0-31.0) Seconds PTT Ratio D-Dimer (0-500) ug/L FEU Sample Site POC pH 6.98 L* 7.00 L* (7.35-7.45) POC pCO2 48 H 35 (35-46) mmHg POC pO2 < 32 L 383 H (80-95) mmHg POC HCO3 11 L 9 L (19-24) uriel/L POC Base Excess -20.0 L -23.0 L (-9-1.8) uriel/L ABG pH (Temp Correct) (7.35-7.45) ABG pCO2 (Temp Corrct (35-46) mmHg POC ABG pO2 at Pt Temp POC ABG O2 Sat 20.0 L 100.0 H (90-95) % Nathan Test VBG pH (7.36-7.41) VBG pCO2 (38-50) mmHg VBG pO2 mmHg VBG HCO3 mmol/L VBG O2 Saturation % VBG Base Excess mEq/L Barometric Pressure mm/Hg O2 Delivery Device POC O2 Rate Minute Ventilation POC FiO2 % Tidal Volume PEEP POC Sodium 139 137 (135-144) mmol/L Sodium (136-145) mmol/L POC Potassium 4.6 5.0 (3.3-5.0) mmol/L Potassium (3.5-5.1) mmol/L POC Chloride (101-112) mmol/L Chloride (98-107) mmol/L Carbon Dioxide (21-32) mmol/L POC Total CO2 13 L 10 L (24-31) mEq/l Anion Gap (3-11) POC Anion Gap (16-25) mmol/L POC BUN (7-18) mg/dl BUN (7-18) mg/dl Creatinine (0.6-1.2) mg/dl POC Creatinine (0.6-1.3) mg/dl Est Cr Clr Drug Dosing Est GFR ( Amer) Est GFR (Non-Af Amer) BUN/Creatinine Ratio (10-20) Glucose (70-99) mg/dl POC Glucose (other) (70-99) mg/dl Lactate (0.4-2.0) mmol/L Calcium (8.5-10.1) mg/dl POC Ioniz Calcium Harish (1.12-1.32) mmol/l Magnesium (1.8-2.4) mg/dl Total Bilirubin (0.2-1) mg/dl AST (15-37) U/L ALT (12-78) U/L Alkaline Phosphatase (45-117) U/L Troponin I (0-0.045) ng/ml NT-Pro-B Natriuret Pep (0-900) pg/ml Total Protein (6.4-8.2) gm/dl Albumin (3.4-5.0) gm/dl Globulin (2.5-4.0) gm/dl Albumin/Globulin Ratio (0.9-2) Procalcitonin (0-0.5) ng/ml Influenza Type A (PCR) (Neg) Influenza Type B (PCR) (Neg) Blood Type Blood Type Recheck Antibody Screen Crossmatch See Detail Draw and Hold 09/01/19 09/01/19 09/01/19 Range/Units 19:58 19:58 22:23 WBC (4.8-10.8) K/uL RBC (4.2-5.4) M/uL Hgb (12.0-16.0) g/dL POC Hgb TNP Hct (37-47) % POC Hct < 15 L* (37-47) % MCV (80-100) fL MCH (25-34) pg MCHC (32-36) g/dL RDW Std Deviation (36.4-46.3) fL RDW Coeff of Binta (11.5-14.5) % Plt Count (130-400) K/uL MPV (7.4-10.4) fL Immature Gran % (Auto) % Neut % (Auto) % Lymph % (Auto) % [place] % (Auto) % Eos % (Auto) % Baso % (Auto) % Reticulocyte % (Auto) (0.5-2.0) % Immature Gran # (Auto) (0.00-0.02) K/uL Neut # (Auto) (1.4-6.5) K/uL Lymph # (Auto) (1.2-3.4) K/uL [place] # (Auto) (0.11-0.59) K/uL Eos # (Auto) (0-0.5) K/uL Baso # (Auto) (0-0.2) K/uL Reticulocyte # (0.02-0.10) 10^6/uL Absolute Nucleated RBC (0-0) K/uL Nucleated RBC % (auto) % Platelet Estimate (Normal) Echinocytes PT > 90.0 H (9.0-12.0) Seconds INR > 9.7 H* (0.9-1.1) APTT > 139.0 H* (21.0-31.0) Seconds PTT Ratio > 5.0 D-Dimer (0-500) ug/L FEU Sample Site R Femoral POC pH 7.07 L* (7.35-7.45) POC pCO2 34 L (35-46) mmHg POC pO2 312 H (80-95) mmHg POC HCO3 10 L (19-24) uriel/L POC Base Excess -20.0 L (-9-1.8) uriel/L ABG pH (Temp Correct) 7.147 L* (7.35-7.45) ABG pCO2 (Temp Corrct 26 L (35-46) mmHg POC ABG pO2 at Pt Temp 284 POC ABG O2 Sat 100.0 H (90-95) % Nathan Test NA VBG pH (7.36-7.41) VBG pCO2 (38-50) mmHg VBG pO2 mmHg VBG HCO3 mmol/L VBG O2 Saturation % VBG Base Excess mEq/L Barometric Pressure mm/Hg O2 Delivery Device Ventilator POC O2 Rate 16 Minute Ventilation 6.4 POC FiO2 60 % Tidal Volume 400 PEEP 5 POC Sodium 139 (135-144) mmol/L Sodium (136-145) mmol/L POC Potassium 4.9 (3.3-5.0) mmol/L Potassium (3.5-5.1) mmol/L POC Chloride (101-112) mmol/L Chloride (98-107) mmol/L Carbon Dioxide (21-32) mmol/L POC Total CO2 11 L (24-31) mEq/l Anion Gap (3-11) POC Anion Gap (16-25) mmol/L POC BUN (7-18) mg/dl BUN (7-18) mg/dl Creatinine (0.6-1.2) mg/dl POC Creatinine (0.6-1.3) mg/dl Est Cr Clr Drug Dosing Est GFR ( Amer) Est GFR (Non-Af Amer) BUN/Creatinine Ratio (10-20) Glucose (70-99) mg/dl POC Glucose (other) (70-99) mg/dl Lactate 14.9 H* (0.4-2.0) mmol/L Calcium (8.5-10.1) mg/dl POC Ioniz Calcium Harish (1.12-1.32) mmol/l Magnesium (1.8-2.4) mg/dl Total Bilirubin (0.2-1) mg/dl AST (15-37) U/L ALT (12-78) U/L Alkaline Phosphatase (45-117) U/L Troponin I (0-0.045) ng/ml NT-Pro-B Natriuret Pep (0-900) pg/ml Total Protein (6.4-8.2) gm/dl Albumin (3.4-5.0) gm/dl Globulin (2.5-4.0) gm/dl Albumin/Globulin Ratio (0.9-2) Procalcitonin (0-0.5) ng/ml Influenza Type A (PCR) (Neg) Influenza Type B (PCR) (Neg) Blood Type Blood Type Recheck Antibody Screen Crossmatch Draw and Hold Imaging Data Radiologist's Impression: SINGLE VIEW CHEST CLINICAL HISTORY: Sepsis. FINDINGS: 2 AP, portable, supine chest radiographs are obtained. No prior studie s are available for comparison at the time of dictation. The examination is degraded by portable technique and patient rotation. An endotracheal tube has been placed. On the second image this projects 2.5 cm above the junior. The cardiomediastinal silhouette is unremarkable. There are low lung volumes with bibasilar atelectasis. No airspace consolidation or large pleural effusion is identified. No pneumothorax is seen. The skeletal structures are osteopenic. The bony thorax is grossly intact. IMPRESSION: 1. An endotracheal tube has been placed as above. 2. The lungs are clear. ACT 112: Negative or not required by law. Electronically signed by: Rogelio Mills M.D. 09/01/2019 5:37 PM Dictated: [id number] Transcribed: [id number] CT ANGIOGRAM OF THE CHEST, ABDOMEN, AND PELVIS CLINICAL HISTORY: Unresponsive. Respiratory arrest. COMPARISON STUDY: Chest x-ray dated 09/01/2019. TECHNIQUE: Following the IV administration of 119 of Optiray 320, CT angiogram of the chest is performed from the upper abdomen to the thoracic inlet utilizing the pulmonary embolus protocol. Subsequently, CT angiogram of the abdomen and pelvis was performed from the lung bases to the proximal femora. Images are reviewed in the axial, sagittal, coronal planes. 3-D MIPS images are created and assessed. IV contrast was administered without complication. A dose lowering technique was utilized adhering to the principles of ALARA. The examination is degraded by motion artifact, as well as by streak artifact from the arms which could not be elevated above the chest. Evaluation of the abdominal viscera is significantly degraded by angiographic phase technique. CT DOSE: 1546.13 mGycm FINDINGS: CHEST: Thyroid: Atrophic. Thoracic aorta: The thoracic aorta is normal in caliber and demonstrates standard 3-vessel arch anatomy. No dissection is seen. The arch vessels are widely patent. Pulmonary vasculature: The pulmonary trunk is normal in caliber. There are no filling defects identified in the main, lobar, or segmental pulmonary arteries to indicate pulmonary embolus. Heart: The heart is normal in size noting a small pericardial effusion. Lungs and pleural spaces: An endotracheal tube terminates just above the junior. Evaluation of the lung parenchyma is degraded by motion artifact. The trachea and central airways appear clear. Dependent atelectasis is observed. No airspace consolidation is seen typical for pneumonia and there is no pleural effusion. There is no pneumothorax. Mediastinum: There is no mediastinal lymphadenopathy. Hellen: Clear. Axillae: There is no axillary lymphadenopathy. Bony thorax: The skeletal structures are osteopenic. No lytic or blastic lesions are identified. ABDOMEN AND PELVIS: Liver: The contrast-enhanced liver is enlarged, measuring at least 22 cm in length. The liver demonstrates diffusely diminished attenuation consistent with severe hepatic steatosis. Foci of geographic sparing are noted, greatest in the left lobe. There is no intrahepatic or ductal dilatation. A 1.7 cm cyst is noted in the right lobe. The hepatic parenchyma and the hepatic capsule are difficult to assess due to surrounding isodense hemoperitoneum. Gallbladder: There is a large calcified gallstone, with no CT evidence of acute cholecystitis. Spleen: The spleen is grossly normal in size and attenuation. The splenic parenchyma is not well evaluated, and the splenic capsule is not well delineated due to surrounding isodense hemoperitoneum. Pancreas: Grossly unremarkable. Adrenal glands: Unremarkable. Kidneys: The contrast enhanced kidneys demonstrate cortical atrophy and are without hydronephrosis. There is no evidence of contour deforming mass lesion. Abdominal aorta and IVC: The abdominal aorta is diminutive. No aneurysm or dissection is seen. The iliac arteries are diminutive but patent. The IVC is decompressed. A left femoral central venous catheter is in place. Foci of intravenous gas are likely related to instrumentation. Major branches of the abdominal aorta: The abdominal vessels are diminutive. The celiac trunk, the superior mesenteric artery, and the inferior mesenteric artery are widely patent. Hepatic arterial anatomy is conventional. The splenic artery is patent. Single bilateral renal arteries are patent. Stomach and bowel: There is a moderate hiatal hernia. An enteric tube terminates in the mid stomach. The duodenum is normal in configuration. No bowel obstruction is seen. There is mild colonic diverticulosis without CT evidence of acute diverticulitis. The appendix is not visualized. Peritoneum: There is no intraperitoneal free air. There is a large volume of complex free fluid in the abdomen and pelvis consistent with hemoperitoneum. Tiny hematocrit levels are noted. No evidence of active extravasation is identified. Lymphadenopathy: None. Pelvic viscera: The bladder is decompressed around a Cheema catheter and not well evaluated. The uterus and adnexa are normal as visualized. Skeletal structures: The skeletal structures are osteopenic. There is mild lumbosacral spondylosis. No lytic or blastic lesions are seen. IMPRESSION: 1. Streak and motion degraded examination. Evaluation of the abdominal viscera is significantly degraded by arteriographic phase technique. 2. There is no evidence of pulmonary embolus in the main, lobar, or segmental pulmonary arteries. 3. There is no aneurysm or dissection seen involving the thoracic or abdominal aorta. 4. There is a large volume of complex free fluid in the abdomen and pelvis consistent with hemoperitoneum. The source of hemorrhage is not identified and no active extravasation is seen at the time of examination. 5. The liver is enlarged and heterogeneous with evidence of steatosis. 6. The hepatic and splenic parenchyma is not well evaluated. 7. There is no airspace consolidation typical for pneumonia, pleural effusion, or pneumothorax. 8. Cholelithiasis. 9. Moderate hiatal hernia. 10. Additional findings as above. ACT 112: Negative or not required by law. Electronically signed by: Rogelio Mills M.D. 09/01/2019 7:46 PM Dictated: 09/01/191928 Transcribed: 09/01/191928 CT SCAN OF THE BRAIN WITHOUT IV CONTRAST CLINICAL HISTORY: Change in mental status. Unresponsive. COMPARISON STUDY: No priors. TECHNIQUE: Unenhanced axial CT scan of the brain is performed from the vertex to the skull base. A dose lowering technique was utilized adhering to the principles of ALARA. The patient was scanned twice due to motion artifact. CT DOSE: 1277.11 mGycm FINDINGS: Brain parenchyma: The brain parenchyma is normal in appearance. There is no hemorrhage, mass effect, or evidence of acute territorial ischemia by CT criteria. Arango-white matter differentiation is preserved. No extra-axial fluid collection is seen. Ventricles, sulci, cisterns: Normal in configuration. Intracranial vasculature: The visualized intracranial vasculature at the skull base is normal in appearance. Calvarium: Unremarkable. Sinuses and mastoids: The visualized paranasal sinuses are clear. The mastoid air cells are well pneumatized. Orbits: The bony orbits are grossly intact. IMPRESSION: No acute intracranial abnormality. ACT 112: Negative or not required by law. Electronically signed by: Rogelio Mills M.D. 09/01/2019 6:59 PM Dictated: 09/01/191856 Transcribed: 09/01/191856 CT SCAN OF THE CERVICAL SPINE CLINICAL HISTORY: Unresponsive. COMPARISON STUDY: No priors. TECHNIQUE: CT scan of the cervical spine is performed from the skull base to the upper thoracic spine. Images are reviewed in the axial, sagittal, and coronal planes. IV contrast was not administered for this examination. A dose lowering technique was utilized adhering to the principles of ALARA. CT DOSE: 394.84 mGycm FINDINGS: Skeletal structures: The skeletal structures are osteopenic. There is no evidence of fracture or subluxation involving the cervical spine. Vertebral body height and alignment are maintained. There is straightening of the cervical lordosis with reversal centered at C4. Anterior osteophytes are seen in the lowe r cervical spine. The odontoid process and lateral masses are intact. The atlantoaxial articulation is preserved noting productive degenerative change. The spinous processes appear intact. Uncovertebral and facet arthropathy are noted in the lower cervical region. Intervertebral discs: There is moderate disc space narrowing seen at C5-C6 and C6-C7. Mild disc space narrowing seen at C4-C5. Central canal: Posterior disc osteophyte complexes at C4-C5, C5-C6, and C6-C7 may contribute to mild acquired compromise of the central canal. Soft tissues: The prevertebral and paraspinous soft tissues are within normal limits. Calvarium: The visualized calvarium at the skull base appears intact. Brain parenchyma: Partially visualized brain parenchyma the skull base is within normal limits. Sinuses and mastoids: The visualized paranasal sinuses are clear. The mastoid air cells are well pneumatized. Lung apices: Endotracheal and enteric tubes are in place. Apical lung parenchyma is clear as visualized. IMPRESSION: There is no evidence of fracture or subluxation involving the cervical spine. ACT 112: Negative or not required by law. Electronically signed by: Rogelio Mills M.D. 09/01/2019 7:29 PM Dictated: 09/01/191925 Transcribed: 09/01/191925 ECG Data Attestation: I personally reviewed and interpreted this ECG as follows: Indication: + SOB/dyspnea Rate (beats per minute): 115 Additional Comments: EKG was obtained in the emergency department. My interpretation is sinus tachycardia at 150 bpm. Significant inferior and low lateral ST depressions were noted. This appears to be consistent with significa nt ischemia. Changes were new compared to an EKG from November [id number]. EKG was obtained by the prehospital personnel. It appears to be consistent with sinus tachycardia at 133 bpm. There is no ectopy. Inferior and lateral ST segment abnormalities were noted. This appears to be consistent with the tracing done in the emergency department today. MDM Narrative The patient is a 64-year-old female who presented to the emergency department by ambulance. The patient called the ambulance herself initially because of shortness of breath. According to the prehospital personnel she also complained of some chest pain. Her condition started to worsen on route. She had an intraosseous line placed in her left humerus. She received IV fluids as well as supplemental oxygen. She started to worsen and ALS was initiated with bag valve mask chest compressions and epinephrine. The patient arrived at the emergency department with a pulse but she was very obtunded. The patient was initially intubated by anesthesia. Further resuscitation was performed using IV fluids as well as IV pressors. She also received IV bicarbonate. Her rectal exam re vealed light brown stool and she was found to be severely anemic. Her abdomen continued to enlarge while she was in the emergency department. Initially we thought this was secondary to aggressive [id number] but after an OG tube was placed her abdominal distention did not improve. Bedside ultrasound revealed significant free fluid in the abdomen. Central line was placed. The patient received IV fluids IV antibiotics and IV blood transfusion. She was reevaluated multiple times in her condition was not significantly improved. I discussed her case with the on-call general surgeon as well as the on-call mixing machine tender cork rod. She was evaluated in the emergency department by both of these specialist. I also discussed her case with the on-call [facility] hospitalist group for medical management. The patient was felt to be in critical condition but was taken to the operating room for exploratory laparotomy. CAT scan was obtained but it was difficult to ascertain the source of the hemoperitoneum. I did obtain further history from the prehospital personnel as well as the patient significant other. I discussed the patient's condition with the significant other multiple times he is aware of the grave condition that his is in at this time. Ultimately the patient was found to have significant hemoperitoneum and I feel this is the cause of the patient's cardiac arrest. He denies that the patient had any trauma. She did have some degree of "upset stomach" yesterday but did not complain of any significant abdominal pain today. The patient did have one episode where she became bradycardic relative to her underlying rhythm. This was treated with further resuscitative measures including push dose epinephrine. She tolerated this quite well and continued to have a pulse throughout her emergency department stay. Impression & Plan Cardiac arrest, Respiratory arrest, Hemoperitoneum, Anemia, Metabolic acidosis, Acute respiratory acidosis, LATISHA (acute kidney injury), Thrombocytopenia Discharge Plan Visit Data *Final* Discharge Date/Time: 09/01/19 20:34 Chief Complaint: Respiratory Arrest Stated Complaint: BREATHING DIFF, UNRESPONESIVE ED Provider: Elvin Hernandes Discharge Problem: Cardiac arrest, Respiratory arrest, Hemoperitoneum, Anemia, Metabolic acidosis, Acute respiratory acidosis, LATISHA (acute kidney injury), Thrombocytopenia Patient Disposition: Admitted As Inpatient Condition: Critical Discharge Instructions Interventions: ED Discharge Assessment Last Done: 09/01/19 20:34 Discharge Problem: Anemia Qualifiers: Anemia type: unspecified type Qualified Code(s): D64.9 - Anemia, unspecified
[2019-09-01] MEDS: NOREPINEPHRINE BIT INJ 8 MG in DEXTROSE 5% 500 ML IV SCH ×2 (17:10→22:18)
[2019-09-01 17:28] LABS: Base Excess VBG -20.4 mEq/L; HCO3 VBG 12 mmol/L; Oxygen Saturation VBG < 60.0 %; PCO2 VBG 78 mmHg (38-50); PO2 VBG 51 mmHg
[2019-09-01] MEDS ORDERED: SODIUM CHLORIDE 0.9% 1000ML 500 ML IV ONE ×2 (17:29→17:31)
--- NOTE | 2019-09-01 17:29 | Anesthesia Procedure Note ---
Anesthesia Procedure Note Intubation Note Vital Signs: Patient medical history, medications, allergies and vitals reviewed. Date of procedure: 09/01/19 Indication for intubation: Respiratory distress Consent: Risk / Benefits Reviewed With: Emergency (patient in full cardiopulmonary arrest.) Monitors attached: Blood Pressure, CO2, EKG and Pulse Oximetry Time out completed: Yes Premedication: None Paralytic medication: Other (meds given by ER physician/RN; etomidate and succinylcholine) Intubation technique: Mask ventilation (by ER physician and respiratory therapist), RSI and Cricoid pressure Equipment: Glidescope (#3) Endotracheal tube: 7.5 (21) Attempts: Multiple Tube placement confirmation: Positive CO2 detection Procedure Summary: Called to ER [place] A 1 code Blue;Pt in cardiopulmonary arrest. After donning PPE w/ caution, A1 entered w/ DIRECTOR INTERNAL AUDIT. FLOAT OPERATOR administered etomidate and succinylcholine on ER physician orders.ER physician attempted intubation x 3 w/o success due to anterior anatomy. DIRECTOR INTERNAL AUDIT attempted x1 w/ glidescope 3 w/o success. I attempted x 1 w/o incident. VC's visualized, atraumatic intubation;+ ETCO2 w/ easy cap by RT. Post-procedure: Post placement CXR ordered
--- NOTE | 2019-09-01 17:36 | Anesthesiology Consultation ---
Date of Service September 01, 2019 Assessment & Plan Chart Review Chart Review: Patient NOT seen in Pre Admission Testing ASA [id number] Proposed Anesthesia Anesthesia Type: Other (ER physician induced pt w/ gen. anesthesia for emergent intubation) Additional Comments: emergency situation in unresponsive pt History Height/Weight Weight: 76.5 kg Allergies Allergy/AdvReac Type Severity Reaction Status Date / Time mushroom Allergy Intermediate RASH Unverified 11/23/03 02:39 STAWBERRIES Allergy Intermediate RASH Uncoded 11/23/03 02:38 NPO Date Last Intake of Fluids: 09/01/19 Date Last Intake of Solids: 09/01/19 Exercise / Class Metabolic Activity III < 4 Walking/Shop/Light housework Past Anesthesia History No Hx of Anesthesia Complications and No Family Hx of Anesthesia Complications History of PONV No Hx of PONV and No Hx of Motion Sickness Social History Smoking Status: Unknown if ever smoked Physical Exam Vital Signs Last Vital Signs Pulse 111 H 09/01/19 17:25 Resp 25 H 09/01/19 17:25 BP 76/50 L 09/01/19 16:55 Pulse Ox 100 09/01/19 17:28 ENMT Mouth: + dental bridge, + poor dentition and + small oral opening; no dentition abnormality Thyromental Distance: < 3.5 Finger Breadths Mallampati Class: III Neck normal visual inspection, trachea midline and + shortened thyromental distance; neck extension not limited Respiratory normal respiratory effort, + respiratory distress and + uses accessory muscles Auscultation: + diminished lung sounds Cardiovascular Rate/Rhythm: + tachycardic Heart Sounds: no murmur Vessels: no carotid bruit Musculoskeletal Spine: normal cervical ROM Extremities: extremities normal to inspection Neurologic + does not move all extremities (pt unresponsive) Motor/Sensory: no sensory deficit Psychiatric pt unresponsive
[2019-09-01 17:38] LABS: Alanine Aminotransferase 89 U/L (12-78); Albumin Level 1.6 gm/dl (3.4-5.0); Aspartate Aminotransferase 152 U/L (15-37); BUN Creatinine Ratio 8.3 (10-20); Blood Urea Nitrogen 12 mg/dl (7-18); Calcium 7.6 mg/dl (8.5-10.1); Carbon Dioxide 13 mmol/L (21-32); Chloride 116 mmol/L (98-107); Est GFR (African American) 45.8; Est GFR (Non-African American) 39.5; Glucose 180 mg/dl (70-99); Hematocrit (blood only) 18.9 % (37-47); Hemoglobin 5.6 g/dL (12.0-16.0); Magnesium 2.5 mg/dl (1.8-2.4); Mean Corpuscular Hemoglobin 29.6 pg (25-34); Mean Corpuscular Hgb Conc 29.6 g/dL (32-36); Mean Platelet Volume 12.3 fL (7.4-10.4); Platelet Count 69 K/uL (130-400); RDW Coefficient of Variation 15.8 % (11.5-14.5); RDW Standard Deviation 57.5 fL (36.4-46.3); Red Blood Count 1.89 M/uL (4.2-5.4); Sodium 148 mmol/L (136-145); White Blood Count 6.09 K/uL (4.8-10.8)
--- NOTE | 2019-09-01 17:38 | XRay Report ---
SINGLE VIEW CHEST CLINICAL HISTORY: Sepsis. FINDINGS: 2 AP, portable, supine chest radiographs are obtained. No prior studies are available for c omparison at the time of dictation. The examination is degraded by portable technique and patient rot ation. An endotracheal tube has been placed. On the second image this projects 2.5 cm above the reyes a. The cardiomediastinal silhouette is unremarkable. There are low lung volumes with bibasilar atelec tasis. No airspace consolidation or large pleural effusion is identified. No pneumothorax is seen. Th e skeletal structures are osteopenic. The bony thorax is grossly intact. IMPRESSION: 1. An endotracheal tube has been placed as above. 2. The lungs are clear. ACT 112: Negative or not required by law. Electronically signed by: Rogelio Mills M.D. 09/01/2019 5:37 PM
[2019-09-01] MEDS ORDERED: SODIUM CHLORIDE 0.9% 250 ML IV PRN ×2 (17:40→22:55)
[2019-09-01 17:45] LABS: Albumin Globulin Ratio 0.9 (0.9-2); Alkaline Phosphatase 193 U/L (45-117); Bilirubin,Total 0.6 mg/dl (0.2-1); Globulin 1.8 gm/dl (2.5-4.0); NT Pro B Type Natriuretic Pept 400 pg/ml (0-900); Total Protein 3.4 gm/dl (6.4-8.2); Troponin I 0.168 ng/ml (0-0.045)
[2019-09-01] MEDS ORDERED: SODIUM CHLORIDE 0.9% 1000ML 1,000 ML IV ONE (18:12)
[2019-09-01 18:14] LABS: Basophils # (auto) 0.01 K/uL (0-0.2); Basophils % (auto) 0.2 %; Echinocytes 2+; Eosinophils # (auto) 0.05 K/uL (0-0.5); Eosinophils % (auto) 0.8 %; Immature Granulocytes # (auto) 0.31 K/uL (0.00-0.02); Immature Granulocytes % (auto) 5.1 %; Lymphocytes # (auto) 1.96 K/uL (1.2-3.4); Lymphocytes % (auto) 32.2 %; Monocytes # (auto) 0.34 K/uL (0.11-0.59); Monocytes % (auto) 5.6 %; Neutrophils # (auto) 3.42 K/uL (1.4-6.5); Neutrophils % (auto) 56.1 %; Platelet Estimate Decreased (Normal)
[2019-09-01 18:18] LABS: Influenza A virus by PCR Neg for Influ A (Neg); Influenza B virus by PCR Neg for Influ B (Neg)
[2019-09-01 18:20] LABS: D Dimer > 35200 ug/L FEU (0-500)
[2019-09-01 18:32] LABS: Hematocrit (blood only) 14.6 % (37-47); Hemoglobin 4.5 g/dL (12.0-16.0); Mean Corpuscular Hgb Conc 30.8 g/dL (32-36); Mean Corpuscular Volume 97.3 fL (80-100); Mean Platelet Volume 11.3 fL (7.4-10.4); Nucleated RBC # (auto) 0.06 K/uL (0-0); Nucleated RBC % (auto) 0.9 %; Platelet Count 53 K/uL (130-400); RDW Coefficient of Variation 15.9 % (11.5-14.5); RDW Standard Deviation 56.4 fL (36.4-46.3); White Blood Count 6.45 K/uL (4.8-10.8)
[2019-09-01] MEDS ORDERED: OPTIRAY 320 125ml IV PRN (18:53)
[2019-09-01 19:05] LABS: Basophils # (auto) 0.02 K/uL (0-0.2); Basophils % (auto) 0.3 %; Echinocytes 2+; Eosinophils # (auto) 0.07 K/uL (0-0.5); Eosinophils % (auto) 1.1 %; Immature Granulocytes # (auto) 0.54 K/uL (0.00-0.02); Immature Granulocytes % (auto) 8.4 %; Lymphocytes # (auto) 1.93 K/uL (1.2-3.4); Lymphocytes % (auto) 29.9 %; Monocytes % (auto) 3.1 %; Neutrophils # (auto) 3.69 K/uL (1.4-6.5); Neutrophils % (auto) 57.2 %; Reticulocytes # 0.05 10^6/uL (0.02-0.10)
--- NOTE | 2019-09-01 19:11 | CT Scan Report ---
CT SCAN OF THE BRAIN WITHOUT IV CONTRAST CLINICAL HISTORY: Change in mental status. Unresponsive. COMPARISON STUDY: No priors. TECHNIQUE: Unenhanced axial CT scan of the brain is performed from the vertex to the skull base. A d ose lowering technique was utilized adhering to the principles of ALARA. The patient was scanned twic e due to motion artifact. CT DOSE: 1277.11 mGycm FINDINGS: Brain parenchyma: The brain parenchyma is normal in appearance. There is no hemorrhage, mass effect, or evidence of acute territorial ischemia by CT criteria. Arango-white matter differentiation is preser giovani. No extra-axial fluid collection is seen. Ventricles, sulci, cisterns: Normal in configuration. Intracranial vasculature: The visualized intracranial vasculature at the skull base is normal in appe arance. Calvarium: Unremarkable. Sinuses and mastoids: The visualized paranasal sinuses are clear. The mastoid air cells are well pneu matized. Orbits: The bony orbits are grossly intact. IMPRESSION: No acute intracranial abnormality. ACT 112: Negative or not required by law. Electronically signed by: Rogelio Mills M.D. 09/01/2019 6:59 PM
--- NOTE | 2019-09-01 19:30 | CT Scan Report ---
CT SCAN OF THE CERVICAL SPINE CLINICAL HISTORY: Unresponsive. COMPARISON STUDY: No priors. TECHNIQUE: CT scan of the cervical spine is performed from the skull base to the upper thoracic spine . Images are reviewed in the axial, sagittal, and coronal planes. IV contrast was not administered fo r this examination. A dose lowering technique was utilized adhering to the principles of ALARA. CT DOSE: 394.84 mGycm FINDINGS: Skeletal structures: The skeletal structures are osteopenic. There is no evidence of fracture or subl uxation involving the cervical spine. Vertebral body height and alignment are maintained. There is st raightening of the cervical lordosis with reversal centered at C4. Anterior osteophytes are seen in t he lower cervical spine. The odontoid process and lateral masses are intact. The atlantoaxial articul ation is preserved noting productive degenerative change. The spinous processes appear intact. Uncove rtebral and facet arthropathy are noted in the lower cervical region. Intervertebral discs: There is moderate disc space narrowing seen at C5-C6 and C6-C7. Mild disc space narrowing seen at C4-C5. Central canal: Posterior disc osteophyte complexes at C4-C5, C5-C6, and C6-C7 may contribute to mild acquired compromise of the central canal. Soft tissues: The prevertebral and paraspinous soft tissues are within normal limits. Calvarium: The visualized calvarium at the skull base appears intact. Brain parenchyma: Partially visualized brain parenchyma the skull base is within normal limits. Sinuses and mastoids: The visualized paranasal sinuses are clear. The mastoid air cells are well pneu matized. Lung apices: Endotracheal and enteric tubes are in place. Apical lung parenchyma is clear as visualiz ed. IMPRESSION: There is no evidence of fracture or subluxation involving the cervical spine. ACT 112: Negative or not required by law. Electronically signed by: Rogelio Mills M.D. 09/01/2019 7:29 PM
[2019-09-01] MEDS ORDERED: TRANEXAMIC ACID 1,000 MG in 0.9 % SODIUM CHLORIDE 100 ML IV ONE (19:40)
[2019-09-01] MEDS: VASOPRESSIN 20 UNITS in 0.9 % SODIUM CHLORIDE 100 ML IV SCH (19:44)
[2019-09-01] MEDS ORDERED: SODIUM CHLORIDE 0.9% 1000ML 1,000 ML IV SCH (19:45)
--- NOTE | 2019-09-01 19:48 | CT Scan Report ---
CT ANGIOGRAM OF THE CHEST, ABDOMEN, AND PELVIS CLINICAL HISTORY: Unresponsive. Respiratory arrest. COMPARISON STUDY: Chest x-ray dated 09/01/2019. TECHNIQUE: Following the IV administration of 119 of Optiray 320, CT angiogram of the chest is perfor med from the upper abdomen to the thoracic inlet utilizing the pulmonary embolus protocol. Subsequent ly, CT angiogram of the abdomen and pelvis was performed from the lung bases to the proximal femora. Images are reviewed in the axial, sagittal, coronal planes. 3-D MIPS images are created and assessed. IV contrast was administered without complication. A dose lowering technique was utilized adhering to the principles of ALARA. The examination is degraded by motion artifact, as well as by streak tressa fact from the arms which could not be elevated above the chest. Evaluation of the abdominal viscera i s significantly degraded by angiographic phase technique. CT DOSE: 1546.13 mGycm FINDINGS: CHEST: Thyroid: Atrophic. Thoracic aorta: The thoracic aorta is normal in caliber and demonstrates standard 3-vessel arch anato my. No dissection is seen. The arch vessels are widely patent. Pulmonary vasculature: The pulmonary trunk is normal in caliber. There are no filling defects identif ied in the main, lobar, or segmental pulmonary arteries to indicate pulmonary embolus. Heart: The heart is normal in size noting a small pericardial effusion. Lungs and pleural spaces: An endotracheal tube terminates just above the junior. Evaluation of the felix ng parenchyma is degraded by motion artifact. The trachea and central airways appear clear. Dependent atelectasis is observed. No airspace consolidation is seen typical for pneumonia and there is no ple ural effusion. There is no pneumothorax. Mediastinum: There is no mediastinal lymphadenopathy. Hellen: Clear. Axillae: There is no axillary lymphadenopathy. Bony thorax: The skeletal structures are osteopenic. No lytic or blastic lesions are identified. ABDOMEN AND PELVIS: Liver: The contrast-enhanced liver is enlarged, measuring at least 22 cm in length. The liver demonst rates diffusely diminished attenuation consistent with severe hepatic steatosis. Foci of geographic s paring are noted, greatest in the left lobe. There is no intrahepatic or ductal dilatation. A 1.7 cm cyst is noted in the right lobe. The hepatic parenchyma and the hepatic capsule are difficult to asse ss due to surrounding isodense hemoperitoneum. Gallbladder: There is a large calcified gallstone, with no CT evidence of acute cholecystitis. Spleen: The spleen is grossly normal in size and attenuation. The splenic parenchyma is not well eval uated, and the splenic capsule is not well delineated due to surrounding isodense hemoperitoneum. Pancreas: Grossly unremarkable. Adrenal glands: Unremarkable. Kidneys: The contrast enhanced kidneys demonstrate cortical atrophy and are without hydronephrosis. T here is no evidence of contour deforming mass lesion. Abdominal aorta and IVC: The abdominal aorta is diminutive. No aneurysm or dissection is seen. The il iac arteries are diminutive but patent. The IVC is decompressed. A left femoral central venous cathet er is in place. Foci of intravenous gas are likely related to instrumentation. Major branches of the abdominal aorta: The abdominal vessels are diminutive. The celiac trunk, the spaulding perior mesenteric artery, and the inferior mesenteric artery are widely patent. Hepatic arterial mandeep yunier is conventional. The splenic artery is patent. Single bilateral renal arteries are patent. Stomach and bowel: There is a moderate hiatal hernia. An enteric tube terminates in the mid stomach. The duodenum is normal in configuration. No bowel obstruction is seen. There is mild colonic divertic ulosis without CT evidence of acute diverticulitis. The appendix is not visualized. Peritoneum: There is no intraperitoneal free air. There is a large volume of complex free fluid in th e abdomen and pelvis consistent with hemoperitoneum. Tiny hematocrit levels are noted. No evidence of active extravasation is identified. Lymphadenopathy: None. Pelvic viscera: The bladder is decompressed around a Cheema catheter and not well evaluated. The uteru s and adnexa are normal as visualized. Skeletal structures: The skeletal structures are osteopenic. There is mild lumbosacral spondylosis. N o lytic or blastic lesions are seen. IMPRESSION: 1. Streak and motion degraded examination. Evaluation of the abdominal viscera is significantly degra ded by arteriographic phase technique. 2. There is no evidence of pulmonary embolus in the main, lobar, or segmental pulmonary arteries. 3. There is no aneurysm or dissection seen involving the thoracic or abdominal aorta. 4. There is a large volume of complex free fluid in the abdomen and pelvis consistent with hemoperito neum. The source of hemorrhage is not identified and no active extravasation is seen at the time of e xamination. 5. The liver is enlarged and heterogeneous with evidence of steatosis. 6. The hepatic and splenic parenchyma is not well evaluated. 7. There is no airspace consolidation typical for pneumonia, pleural effusion, or pneumothorax. 8. Cholelithiasis. 9. Moderate hiatal hernia. 10. Additional findings as above. ACT 112: Negative or not required by law. Electronically signed by: Rogelio Mills M.D. 09/01/2019 7:46 PM
[2019-09-01] MEDS ORDERED: HYDROCORTISONE SOD SUCCINATE 100 MG/2 ML VIAL IV STA (19:49)
[2019-09-01] MEDS ORDERED: SODIUM BICARBONATE 8.4% INJ 50 MEQ/50 ML VIAL ONE (19:59)
[2019-09-01] MEDS ORDERED: CALCIUM CHLORIDE 10% 1,000 MG in SODIUM CHLORIDE 0.9% 50 ML IV ONE (20:00)
[2019-09-01] MEDS ORDERED: HYDROCORTISONE 100 MG *12cc Syringe IV ONE (20:00)
[2019-09-01] MEDS ORDERED: TRANEXAMIC ACID 1,000 MG **IV Pre-op IV ONE (20:00)
[2019-09-01 20:06] LABS: iSTAT Arterial Blood Gas HCO3 9 meg/L (19-24); iSTAT Arterial Blood Gas pCO2 35 mmHg (35-46); iSTAT Arterial Blood Gas pO2 383 mmHg (80-95); iSTAT Carbon Dioxide 10 mmol/L (24-31); iSTAT Hematocrit 19 % (37-47); iSTAT Hemoglobin 6.5 g/dl (12.0-16.0); iSTAT Sodium 137 mmol/L (135-144)
--- NOTE | 2019-09-01 20:07 | History & Physical Report ---
Date of Service September 01, 2019 Assessment & Plan (1) Hemoperitoneum: Patient is hypotensive and obviously hemorrhaging into her abdomen The etiology of which we do not know Have discussed With her For abdominal exploration to save her life He may arrest in the operating room But it is obvious she would if we do not Attempt exploration. We are beginning a massive transfusion protocol There is a likelihood we will have to leave her abdomen open with a large wound VAC This is obviously an essential operationEven in light of the Covid pandemic History of Present Illness Primary Care Provider: NO PCP Patient is a 64-year-old female brought to the emergency room in distress with respiratory failureRequiring intubation emergently in the ER He was then found on ultrasound with what appeared to be a significant amount of blood in the abdomenHer blood pressure was in the 60 systolic Her hemoglobin was 5. She has now been given multiple units of blood She was taken to the CAT scan which did show intra-abdominal bloodEvidence of significant traumaAlthough she does have Hepatomegaly and mild splenic enlargement. She possibly has a history of some type of hepatic Vascular lesionThis is Not evident on her CAT scan. She has no evidence of extravasation Allergies Allergy/AdvReac Type Severity Reaction Status Date / Time mushroom Allergy Intermediate RASH Unverified 09/01/19 18:58 STAWBERRIES Allergy Intermediate RASH Uncoded 09/01/19 18:58 Home Medications Home Medications Medication Instructions Recorded Confirmed Type atorvastatin 40 mg PO DAILY 09/01/19 09/01/19 History Past Med/Surg History Medical History (Updated 09/01/19 @ 20:06 by Dontrell Valdez MD, FACS) HTN, goal to be determined Myocardial infarction acute Surgical History (Updated 09/01/19 @ 20:04 by Elvin Hernandes DO) H/O section History of excision of hemangioma Social History Preferred Language: Citizen Of [place] Feels Safe at Home: Yes Smoking Status: Unknown if ever smoked Physical Exam Physical Exam: Patient is intubated in the emergency room Blood pressure is in the 60s systolic with a heart rate of 110 She was receiving blood products Our physician and ICU physicianWorking on herPlacing lines He is very pale Abdomen is significantly distended and firm Extremities are cool Results & Data Vital Signs (Past 12 Hours) Vital Signs Pulse Resp BP BP Pulse Ox 09/01/19 19:48 105 H 26 H 100 09/01/19 19:39 108 H 18 100 09/01/19 18:38 106 H 100 09/01/19 18:25 119 H 18 80/40 L 100 09/01/19 18:00 80/40 L 09/01/19 17:41 102 H 26 H 76/50 L 100 09/01/19 17:28 100 09/01/19 17:27 100 09/01/19 17:25 111 H 25 H 100 09/01/19 17:20 117 H 30 H 100 09/01/19 17:15 122 H 26 H 91 09/01/19 17:10 108 H 31 H 98 09/01/19 17:08 128 H 29 H 100 09/01/19 17:05 120 H 28 H 09/01/19 17:01 119 H 29 H 09/01/19 17:00 117 H 21 09/01/19 16:55 108 H 21 76/50 L 09/01/19 16:53 107 H 34 H 43/31 L 09/01/19 16:50 98 H 23 09/01/19 16:48 103 H 27 H I did review the CAT scan
[2019-09-01] MEDS ORDERED: PANTOprazole 80 MG in DEXTROSE 5% 100 ML IV ONE (20:15)
[2019-09-01] MEDS ORDERED: MIDAZOLAM HCL 1 MG/ML 2ML VIAL ONE (20:17)
--- NOTE | 2019-09-01 20:17 | Communication Note ---
Date of Service: September 01, 2019 Pt is hemodynamically unstable,hypotensive on norepinephrine, with metabolic acidosis and w/ intraabdominal hemorrhaging.There is a distinct possibility that she may code and intraoperatively. This, I discussed with her .He said he understood.
[2019-09-01 20:34] LABS: Partial Thromboplastin Ratio > 5.0; Prothrombin Time > 90.0 Seconds (9.0-12.0)
[2019-09-01 20:35] LABS: INR > 9.7 (0.9-1.1)
[2019-09-01 20:36] LABS: Partial Thromboplastin Time > 139.0 Seconds (21.0-31.0)
--- NOTE | 2019-09-01 20:51 | Critical Care Consultation ---
Date of Consultation September 01, 2019 Assessment & Plan (1) Admitted to intensive care unit: Reason Critically Ill: 64-year-old female status post pulseless arrest requiring short round of ACLS with compressions resulting in ROSC prior to arrival in the emergency department he was noted to have large intra-abdominal hemorrhage secondary to bleeding hemangioma. She is status post exploratory laparotomy with packing placed for control of bleeding requiring further surgical intervention with possible need for partial hepatectomy versus interventional radiology. NEURO - * CAM ICU: Unable to assess secondary to level of sedation/lack of consciousness. * Sedation: Versed PRN * Pain: Fentanyl PRN CARDIAC/VASCULAR - * Cardiac arrest status post ROSC in the field: * Presumed secondary to hemorrhagic shock in the setting of bleeding intra- abdominal hemangioma. * Unknown downtime. * TTM contraindicated secondary to state of bleeding. * Will support hypotension with volume, particular blood products. * Requiring vasoactive support in the form of Levophed, vasopressin, and epinephrine. * Monitor on telemetry. RESPIRATORY - * Respiratory arrest secondary to cardiovascular collapse: * Intubated in the emergency department. * Chest x-ray demonstrates no infiltrative changes. * Minimal vent settings at this time. * Metabolic acidosis per ABG. * Continue supportive care. GI/NUTRITION - * Intra-abdominal hemorrhage status post exploratory laparotomy: * Findings consistent with large bleeding hemangioma of the right lobe of the liver which reportedly was found to encompass nearly all of the lobe. * Surgeon was successfully able to pack the area, but unable to successfully stop the bleeding. * Abdomen packed with pads and abdomen left open. * Patient was likely an abdominal compartment syndrome prior to open ex lap as she had significantly distended abdomen with no urine output prior to OR. * Electrolytes have been well managed to this point and patient is actually shown improvement of her creatinine. * Little to no urine output at this time. * Supporting volume with bicarb drip and blood products. * Prophylaxis: Received Protonix RENAL/LYTES - * Acute kidney injury. * Surprisingly, no significant elevation in potassium despite her concerning abdominal findings prior to intervention. * Received a total of 3 g calcium chloride. * Received several rounds of sodium bicarbonate. * IVF: 3A sodium bicarb in D5W at 150mL/hr - * Cheema in place - Strict I&Os. ENDO - * No h/o DM * BSGs per unit protocol. ISS --> gtt per unit policy. HEME - * Acute blood loss anemia: * Secondary to above. * Massive transfusion protocol instituted. * Patient received a total of 11 units PRBC, 1 of platelets, 2 FFP, 1 of cryo. * Ideally, patient will need further intervention as well as greater blood supply for her intra-abdominal hemorrhage which is beyond the capabilities of this institution. ID - * Prophylactically covered with Zosyn LINES/IV ACCESS - * PIVs x2 * RIGHT femoral CVL * RIGHT femoral arterial line * Cheema catheter * ET tube DVT PROPHYLAXIS - * Avoid chemoprophylaxis in the bleeding patient. * SCDs I have personally spent 60 minutes of critical care time in the direct management of this patient. This is a life/limb threatening event. This includes time spent evaluating patient, direct bedside care, chart review, placing orders, interpretation of diagnostic studies, discussion with consultants, patient, and family members, as well as other required patient management act ivities. This time is exclusive of all separately billable procedures, and teaching time and separate from and in addition to any other critical care service time. Thank you for allowing us to participate in the care of this patient. Please refer to my attending physician's documentation for any further recommendations. (2) Intra abdominal hemorrhage: (3) Hemoperitoneum: (4) Thrombocytopenia: (5) LATISHA (acute kidney injury): (6) Metabolic acidosis: (7) Acute blood loss anemia: (8) Hemorrhagic shock: (9) Hemoperitoneum: (10) Respiratory arrest: (11) Cardiac arrest: (12) S/P exploratory laparotomy: Supervising Physician Co-Signing Physician Notes I saw and evaluated the patient with Mahendra Calhoun, and agree with findings and plan as documented in the note. 64-year-old pale appearing female who came in to the emergency room in cardiac arrest needing cardiac resuscitation x2. Hemoglobin was found to be 4.5. CT of the abdomen showed possible hematoma. Patient has history of hemangiomas from before. This likely represents rupture of 1 of the hemangiomas. Central line and arterial line placed. Patient to get massive protocol and go to the OR. Stabilize the patient as much as we can will decide whether the patient needs to be transferred out after that. Prognosis is guarded. History of Present Illness History of Present Illness Patient is a 64-year-old female with a past medical history of hypertension, hyperlipidemia, cardiovascular disease per records. Patient was reportedly experiencing increasing shortness of breath today and had what appears to been a near syncopal episode prompting visit to the emergency department. In route to the emergency department, the patient did have a drop in her blood pressure and went pulseless. A LEFT humeral IO was placed and she received 1 round of epinephrine with compressions. It is uncertain as to how long she had been down., But had returned to sinus tachycardia with pressure shortly after. She was intubated in the emergency department cautiously secondary to current concerns of COVID-19 pandemic. After return of blood work, it was obvious the patient's symptoms were resulting from significant blood loss anemia. CT confirmed hemorrhage in the abdomen. She received 6 units packed red blood cells in the emergency department. Upon evaluation in the emergency department, the patient is intubated and sedated. Femoral central line and arterial lines were placed by attending physician. Massive transfusion protocol was initiated and the patient was taken to the OR for exploratory laparotomy. Intraoperatively, the patient was noted to have a large bleeding hemangioma. Dr. Valdez of general surgery was able to evacuate the hematoma and pack the RIGHT upper quadrant with 9 laparotomy pads, as he was unable to completely stop the bleeding. She received an additional 2 units of PRBCs in the OR as well as cryoprecipitate, 2 units FFP, and 1 unit of platelets. She remained hypotensive throughout procedure on levo fed and vasopressin. Upon arrival in the ICU, patient was assessed at bedside. Her abdomen was left open with packing in place and draining as well. Repeat labs demonstrated a metabolic acidosis for which she was treated with an additional 2 A of sodium bicarbonate. She received an additional 2 units PRBCs as her H&H has trended down. Please see assessment/plan for further intervention. Allergies Allergy/AdvReac Type Severity Reaction Status Date / Time mushroom Allergy Intermediate RASH Unverified 09/01/19 18:58 strawberry Allergy Intermediate Rash Verified 09/01/19 21:20 Home Medications Home Medications Medication Instructions Recorded Confirmed Type atorvastatin 40 mg PO DAILY 09/01/19 09/01/19 History Patient History Medical History HTN, goal to be determined Myocardial infarction acute Surgical History H/O section History of excision of hemangioma Social History Preferred Language: Lithuanian [employer] Required: No Beliefs That Will Affect Care: None Current Living Situation: Family and Significant Other Feels Safe at Home: Declines to Answer Smoking Status: Unknown if ever smoked Review of Systems Review of Systems: Unobtainable due to reduced consciousness Physical Exam Physical Exam: VITAL SIGNS - Vital signs and nursing notes were reviewed. GENERAL - 64-year-old female appearing her stated age who is intubated and sedated. SKIN - Without rashes. HEAD - NC/AT. EYES - PERRL bilaterally. Sclera anicteric. EARS - No deformities of external structures noted on gross examination bilaterally. NOSE - Midline and without cyanosis. MOUTH/OROPHARYNX - Without perioral cyanosis. ET Tube in place. NECK - Supple to palpation. No nuchal rigidity. LUNGS - Chest wall symmetric without accessory muscle use, intercostals retractions, or central cyanosis. Normal vesicular breath sounds CTA B/L. No w heezes, rales, or rhonchi appreciated. CARDIAC - RRR with S1/S2. No murmur, rubs, or gallops appreciated. ABDOMEN - Abdominal contour obese which remains open status post exploratory laparotomy incision with packing and wound VAC in place. Unable to appreciate bowel sounds. EXTREMITIES - No clubbing or peripheral cyanosis. Weak peripheral pulses. NEUROLOGIC -no focal neurological deficits. Unable to fully assess secondary to level of consciousness. Results & Data Results & Data ([facility]) Vital Signs (Past 12 Hours) Vital Signs Pulse Resp BP BP Pulse Ox 09/01/19 20:34 114 H 22 100 09/01/19 20:21 114 H 100 09/01/19 20:20 116 H 100 09/01/19 20:16 113 H 22 84/50 L 100 09/01/19 20:15 112 H 100 09/01/19 20:12 110 H 53/43 L 100 09/01/19 20:10 109 H 100 09/01/19 20:05 108 H 100 09/01/19 20:01 109 H 100 09/01/19 20:00 109 H 100 09/01/19 19:55 111 H 100 09/01/19 19:50 105 H 99 09/01/19 19:48 105 H 26 H 100 09/01/19 19:45 106 H 99 09/01/19 19:40 107 H 100 09/01/19 19:39 108 H 18 100 09/01/19 19:35 108 H 100 09/01/19 19:30 110 H 100 09/01/19 19:29 110 H 100 09/01/19 19:25 111 H 100 09/01/19 19:20 109 H 100 09/01/19 19:15 108 H 100 09/01/19 19:14 108 H 68/47 L 100 09/01/19 19:10 104 H 09/01/19 18:38 106 H 100 09/01/19 18:35 108 H 100 09/01/19 18:30 113 H 100 09/01/19 18:25 119 H 18 80/40 L 100 09/01/19 18:20 126 H 09/01/19 18:16 129 H 92 09/01/19 18:15 129 H 86 L 09/01/19 18:10 48 L 09/01/19 18:05 71 99 09/01/19 18:03 72 99 09/01/19 18:00 80/40 L 09/01/19 17:55 98 H 96 09/01/19 17:50 97 H 97 09/01/19 17:45 102 H 99 09/01/19 17:41 102 H 26 H 76/50 L 100 09/01/19 17:40 103 H 99 09/01/19 17:35 110 H 99 09/01/19 17:31 110 H 100 09/01/19 17:30 110 H 99 09/01/19 17:28 100 09/01/19 17:27 100 09/01/19 17:25 111 H 25 H 100 09/01/19 17:20 117 H 30 H 100 09/01/19 17:15 122 H 26 H 91 09/01/19 17:10 108 H 31 H 98 09/01/19 17:08 128 H 29 H 100 09/01/19 17:05 120 H 28 H 09/01/19 17:01 119 H 29 H 09/01/19 17:00 117 H 21 09/01/19 16:55 108 H 21 76/50 L 09/01/19 16:53 107 H 34 H 43/31 L 09/01/19 16:50 98 H 23 09/01/19 16:48 103 H 27 H Coding Level of Care Code Critical Care 1st 30-74 mins Diagnoses Admitted to intensive care unit Z78.9 Intra abdominal hemorrhage R58 Hemoperitoneum K66.1 Thrombocytopenia D69.6 LATISHA (acute kidney injury) N17.9 Metabolic acidosis E87.2 Acute blood loss anemia D62 Hemorrhagic shock R57.8 Hemoperitoneum K66.1 Respiratory arrest R09.2 Cardiac arrest I46.9 S/P exploratory laparotomy Z98.890 Time Spent (min) 60
[2019-09-01] MEDS ORDERED: GELATIN SPONGE SZ 100 ONE (21:17)
[2019-09-01] MEDS ORDERED: FLOSEAL HEMOSTATIC MATRIX 10ML TOP ONE (21:18)
[2019-09-01] MEDS ORDERED: THROMBIN FOR SOLN 20000 UNIT KIT ONE (21:18)
[2019-09-01] MEDS ORDERED: CISATRACURIUM BESYLATE IV SOLN 2 MG/ML 10 ML VIAL IV ONE (21:19)
--- NOTE | 2019-09-01 21:29 | Procedure Note ---
Procedure Note Date of Service September 01, 2019 ARTERIAL LINE PROCEDURE NOTE: Procedure: Arterial Line Placement Attending: Ok Butcher MD Indication: Monitoring on Pressors Anesthesia: Local Lidocaine 1% Emergency consent was placed on the chart prior to procedure. Indication, risks, and benefits were explained at length. A time-out was completed verifying correct patient, procedure, site, positioning, and implant(s) or special equipment if applicable. Patients right groin was prepped and draped in the usual sterile fashion. Ultrasound guidance was used to aid needle placement. A 20g Arrow arterial line was introduced into the right femoral artery. Catheter was threaded, and the needle was removed with appropriate pulsatile blood return. Good waveform was observed on the monitor. The patient tolerated the procedure well. Blood Loss: Minimal Complications: None Coding CPT Codes Tubes, Drains, and Vasc Access - Tubes, Drains, and Vasc Access: [id number] Insertion Catheter, Artery ([id number]) Tubes, Drains, and Vasc Access - Tubes, Drains, and Vasc Access: [id number] Ultrasonic Guide For Needle Placement ([id number]) [facility] [place] Codes (Charges) Tubes, Drains, and Vasc Access Procedure 1: Tubes, Drains, and Vasc Access: [id number] Insertion Catheter, Artery Procedure 2: Tubes, Drains, and Vasc Access: [id number] Ultrasonic Guide For Needle Placement
--- NOTE | 2019-09-01 21:30 | Procedure Note ---
Procedure Note Date of Service September 01, 2019 Procedure: Inserting ultrasound-guided central line up worker: Ok Butcher MD Indication: Hypotension Consent: Emergent with timeout prior to procedure. Anesthesia: 1% lidocaine without epinephrine local. Procedure: Consent was verified and timeout performed. Appropriate imaging studies were reviewed prior to the procedure. Under aseptic and sterile condition, right femoral vein was accessed under direct ultrasound guidance. Guidewire was confirmed to be within the lumen of vein with the help of ultrasound. Catheter was introduced via Seldinger technique. Guide a wire was removed. Good non-pulsatile blood flow was appreciated from all the ports. The catheter was placed at 26 cm and sutured in place. BioPatch was applied to the catheter and a sterile Tegaderm dressing was applied over the catheter with careful attention to sterility. Patient tolerated the procedure well. Blood loss: Less than 5 cc Complications: None Coding CPT Codes Tubes, Drains, and Vasc Access - Tubes, Drains, and Vasc Access: [id number] Place catheter in vein superior or inferior vena cava ([id number]) Tubes, Drains, and Vasc Access - Tubes, Drains, and Vasc Access: [id number] Ultrasonic Guide For Needle Placement ([id number]) [facility] [place] Codes (Charges) Tubes, Drains, and Vasc Access Procedure 3: Tubes, Drains, and Vasc Access: [id number] Place catheter in vein superior or inferior vena cava Procedure 4: Tubes, Drains, and Vasc Access: [id number] Ultrasonic Guide For Needle Placement
--- NOTE | 2019-09-01 22:03 | Post Operative Brief Note ---
PG Immediate Post Op with CF Date of Surgery September 01, 2019 Pre & Post Diagnosis Operation Date: 09/01/19 20:30 Pre-Op Diagnosis: Hemoperitoneum Post-Op Diagnosis: Hemoperitoneum I identified the patient and participated in the time-out.: Yes Procedure Operation Date: 09/01/19 20:30 Actual Procedures p Exploratory Laparotomy, Evacuation of Hematoma, Packing of Liver Lesion(Not Applicable) - Dontrell Valdez MD, FACS Surgeon Dontrell Valdez MD, FACS Jewel Stringer [place] Estimated Blood Loss 5,000 Findings Consistent with Post-Op Diagnosis Specimens Specimen Description: None per surgeon. Drains Anmol-Farah Drain (19fr, 100cc bulb)
[2019-09-01] MEDS ORDERED: HYDROmorphone INJ 0.5 MG/0.5 ML SYR IV PRN (22:07)
[2019-09-01] MEDS ORDERED: HYDROmorphone INJ 1 MG/ML SYRINGE IV PRN (22:07)
[2019-09-01] MEDS ORDERED: ATROPINE SULFATE 0.1 MG/ML 10ML SYR IV PRN (22:23)
[2019-09-01] MEDS ORDERED: ePHEDrine sulfate 50 MG/ML AMP IV PRN (22:23)
--- NOTE | 2019-09-01 22:28 | Anesthesiology Progress Note ---
Date of Service September 01, 2019 Anesthesia Post Procedure Vital Signs Vital Signs: Pulse Resp BP BP Pulse Ox 09/01/19 20:34 114 H 22 100 09/01/19 20:21 114 H 100 09/01/19 20:20 116 H 100 09/01/19 20:16 113 H 22 84/50 L 100 09/01/19 20:15 112 H 100 09/01/19 20:12 110 H 53/43 L 100 09/01/19 20:10 109 H 100 09/01/19 20:05 108 H 100 09/01/19 20:01 109 H 100 09/01/19 20:00 109 H 100 09/01/19 19:55 111 H 100 09/01/19 19:50 105 H 99 09/01/19 19:48 105 H 26 H 100 09/01/19 19:45 106 H 99 09/01/19 19:40 107 H 100 09/01/19 19:39 108 H 18 100 09/01/19 19:35 108 H 100 09/01/19 19:30 110 H 100 09/01/19 19:29 110 H 100 09/01/19 19:25 111 H 100 09/01/19 19:20 109 H 100 09/01/19 19:15 108 H 100 09/01/19 19:14 108 H 68/47 L 100 09/01/19 19:10 104 H 09/01/19 18:38 106 H 100 09/01/19 18:35 108 H 100 09/01/19 18:30 113 H 100 09/01/19 18:25 119 H 18 80/40 L 100 09/01/19 18:20 126 H 09/01/19 18:16 129 H 92 09/01/19 18:15 129 H 86 L 09/01/19 18:10 48 L 09/01/19 18:05 71 99 09/01/19 18:03 72 99 09/01/19 18:00 80/40 L 09/01/19 17:55 98 H 96 09/01/19 17:50 97 H 97 09/01/19 17:45 102 H 99 09/01/19 17:41 102 H 26 H 76/50 L 100 09/01/19 17:40 103 H 99 09/01/19 17:35 110 H 99 09/01/19 17:31 110 H 100 09/01/19 17:30 110 H 99 09/01/19 17:28 100 09/01/19 17:27 100 09/01/19 17:25 111 H 25 H 100 09/01/19 17:20 117 H 30 H 100 09/01/19 17:15 122 H 26 H 91 09/01/19 17:10 108 H 31 H 98 09/01/19 17:08 128 H 29 H 100 09/01/19 17:05 120 H 28 H 09/01/19 17:01 119 H 29 H 09/01/19 17:00 117 H 21 09/01/19 16:55 108 H 21 76/50 L 09/01/19 16:53 107 H 34 H 43/31 L 09/01/19 16:50 98 H 23 09/01/19 16:48 103 H 27 H Transfer of Care Handoff Completed per policy Notes Mental Status: see notes below Patient Amnestic to Procedure: Yes Nausea / Vomiting: see Notes below Pain: see Notes below Airway Patency, RR, SpO2: stable & adequate BP & HR: see Notes below Hydration State: see Notes below Anesthetic Complications: no major complications apparent Notes: pt is critical and hemodynamically unstable.Pt was hypothermic in ER.Pt was intubated in ER.Pt was receiving massive transfusion protocol.Report was given to ICU YULIANA Calhoun.
[2019-09-01] MEDS ORDERED: SODIUM BICARB 8.4% INJ 50 MEQ/50 ML SYR IV STA (22:32)
[2019-09-01] MEDS ORDERED: SODIUM BICARB 8.4% INJ 50 MEQ/50 ML SYR ONE (22:33)
[2019-09-01] MEDS ORDERED: EPINEPHrine INJ 1 MG/ML AMP ONE (22:35)
[2019-09-01] MEDS ORDERED: PHENYLEPHRINE HCL 10 MG/ML VIAL ONE (22:35)
[2019-09-01] MEDS ORDERED: ICU PROTOCOL FOR HYPERGLYCEMIA PRN (22:36)
[2019-09-01] MEDS ORDERED: MIDAZOLAM HCL 1 MG/ML 2ML VIAL IV PRN (22:36)
[2019-09-01] MEDS ORDERED: fentaNYL citrate 100 MCG/2 ML VIAL IV PRN (22:36)
[2019-09-01] MEDS ORDERED: SODIUM BICARBONATE 8.4% 150 MEQ in DEXTROSE 5% 1,000 ML IV SCH (22:45)
[2019-09-01] MEDS ORDERED: EPINEPHrine 2 MG in DEXTROSE 5% 250 ML IV STA (22:48)
[2019-09-01 22:55] LABS: Hematocrit (blood only) 15.1 % (37-47); Mean Corpuscular Hemoglobin 30.1 pg (25-34); Mean Corpuscular Hgb Conc 33.1 g/dL (32-36); Mean Platelet Volume 10.2 fL (7.4-10.4); Nucleated RBC # (auto) 0.07 K/uL (0-0); Nucleated RBC % (auto) 0.8 %; Platelet Count 78 K/uL (130-400); RDW Coefficient of Variation 14.7 % (11.5-14.5); RDW Standard Deviation 48.7 fL (36.4-46.3); Red Blood Count 1.66 M/uL (4.2-5.4); White Blood Count 8.32 K/uL (4.8-10.8)
--- NOTE | 2019-09-01 22:58 | Hospitalist Consultation ---
Date of Consultation September 01, 2019 History of Present Illness Attending Physician: Dontrell Valdez MD, FACS Allergies Allergy/AdvReac Type Severity Reaction Status Date / Time mushroom Allergy Intermediate RASH Unverified 09/01/19 18:58 strawberry Allergy Intermediate Rash Verified 09/01/19 21:20 Home Medications Home Medications Medication Instructions Recorded Confirmed Type atorvastatin 40 mg PO DAILY 09/01/19 09/01/19 History Patient History Medical History HTN, goal to be determined Myocardial infarction acute Surgical History H/O section History of excision of hemangioma Social History Preferred Language: Danish Feels Safe at Home: Yes Smoking Status: Unknown if ever smoked Results & Data Results & Data ([facility]) Vital Signs (Past 12 Hours) Vital Signs Pulse Resp BP BP Pulse Ox 09/01/19 20:34 114 H 22 100 09/01/19 20:21 114 H 100 09/01/19 20:20 116 H 100 09/01/19 20:16 113 H 22 84/50 L 100 09/01/19 20:15 112 H 100 09/01/19 20:12 110 H 53/43 L 100 09/01/19 20:10 109 H 100 09/01/19 20:05 108 H 100 09/01/19 20:01 109 H 100 09/01/19 20:00 109 H 100 09/01/19 19:55 111 H 100 09/01/19 19:50 105 H 99 09/01/19 19:48 105 H 26 H 100 09/01/19 19:45 106 H 99 09/01/19 19:40 107 H 100 09/01/19 19:39 108 H 18 100 09/01/19 19:35 108 H 100 09/01/19 19:30 110 H 100 09/01/19 19:29 110 H 100 09/01/19 19:25 111 H 100 09/01/19 19:20 109 H 100 09/01/19 19:15 108 H 100 09/01/19 19:14 108 H 68/47 L 100 09/01/19 19:10 104 H 09/01/19 18:38 106 H 100 09/01/19 18:35 108 H 100 09/01/19 18:30 113 H 100 09/01/19 18:25 119 H 18 80/40 L 100 09/01/19 18:20 126 H 09/01/19 18:16 129 H 92 09/01/19 18:15 129 H 86 L 09/01/19 18:10 48 L 09/01/19 18:05 71 99 09/01/19 18:03 72 99 09/01/19 18:00 80/40 L 09/01/19 17:55 98 H 96 09/01/19 17:50 97 H 97 09/01/19 17:45 102 H 99 09/01/19 17:41 102 H 26 H 76/50 L 100 09/01/19 17:40 103 H 99 09/01/19 17:35 110 H 99 09/01/19 17:31 110 H 100 09/01/19 17:30 110 H 99 09/01/19 17:28 100 09/01/19 17:27 100 09/01/19 17:25 111 H 25 H 100 09/01/19 17:20 117 H 30 H 100 09/01/19 17:15 122 H 26 H 91 09/01/19 17:10 108 H 31 H 98 09/01/19 17:08 128 H 29 H 100 09/01/19 17:05 120 H 28 H 09/01/19 17:01 119 H 29 H 09/01/19 17:00 117 H 21 09/01/19 16:55 108 H 21 76/50 L 09/01/19 16:53 107 H 34 H 43/31 L 09/01/19 16:50 98 H 23 09/01/19 16:48 103 H 27 H Laboratory Results Laboratory Results WBC 8.32 K/uL (4.8-10.8) 09/01/19 22:35 RBC 1.66 M/uL (4.2-5.4) L 09/01/19 22:35 Hgb 5.0 g/dL (12.0-16.0) L* 09/01/19 22:35 POC Hgb 6.5 g/dl (12.0-16.0) L* 09/01/19 19:54 Hct 15.1 % (37-47) L* 09/01/19 22:35 POC Hct 19 % (37-47) L* 09/01/19 19:54 MCV 91.0 fL (80-100) D 09/01/19 22:35 MCH 30.1 pg (25-34) 09/01/19 22:35 MCHC 33.1 g/dL (32-36) 09/01/19 22:35 RDW Std Deviation 48.7 fL (36.4-46.3) H 09/01/19 22:35 RDW Coeff of Binta 14.7 % (11.5-14.5) H 09/01/19 22:35 Plt Count 78 K/uL (130-400) L 09/01/19 22:35 MPV 10.2 fL (7.4-10.4) 09/01/19 22:35 Immature Gran % (Auto) 8.4 % 09/01/19 18:17 Neut % (Auto) 57.2 % 09/01/19 18:17 Lymph % (Auto) 29.9 % 09/01/19 18:17 Marquette % (Auto) 3.1 % 09/01/19 18:17 Eos % (Auto) 1.1 % 09/01/19 18:17 Baso % (Auto) 0.3 % 09/01/19 18:17 Reticulocyte % (Auto) 3.0 % (0.5-2.0) H 09/01/19 18:17 Immature Gran # (Auto) 0.54 K/uL (0.00-0.02) H 09/01/19 18:17 Neut # (Auto) 3.69 K/uL (1.4-6.5) 09/01/19 18:17 Lymph # (Auto) 1.93 K/uL (1.2-3.4) 09/01/19 18:17 Marquette # (Auto) 0.20 K/uL (0.11-0.59) 09/01/19 18:17 Eos # (Auto) 0.07 K/uL (0-0.5) 09/01/19 18:17 Baso # (Auto) 0.02 K/uL (0-0.2) 09/01/19 18:17 Reticulocyte # 0.05 10^6/uL (0.02-0.10) 09/01/19 18:17 Absolute Nucleated RBC 0.07 K/uL (0-0) H 09/01/19 22:35 Nucleated RBC % (auto) 0.8 % 09/01/19 22:35 Platelet Estimate Decreased (Normal) L 09/01/19 17:08 Echinocytes 2+ 09/01/19 18:17 PT > 90.0 Seconds (9.0-12.0) H 09/01/19 19:58 INR > 9.7 (0.9-1.1) H* 09/01/19 19:58 APTT > 139.0 Seconds (21.0-31.0) H* 09/01/19 19:58 PTT Ratio > 5.0 09/01/19 19:58 D-Dimer > 46116 ug/L FEU (0-500) H* 09/01/19 17:08 POC pH 7.00 (7.35-7.45) L* 09/01/19 19:54 POC pCO2 35 mmHg (35-46) 09/01/19 19:54 POC pO2 383 mmHg (80-95) H 09/01/19 19:54 POC HCO3 9 uriel/L (19-24) L 09/01/19 19:54 POC Total CO2 10 mmol/L (24-31) L 09/01/19 19:54 POC Base Excess -23.0 uriel/L (-9-1.8) L 09/01/19 19:54 POC ABG O2 Sat 100.0 % (90-95) H 09/01/19 19:54 VBG pH 6.80 (7.36-7.41) L 09/01/19 17:08 VBG pCO2 78 mmHg (38-50) H 09/01/19 17:08 VBG pO2 51 mmHg 09/01/19 17:08 VBG HCO3 12 mmol/L 09/01/19 17:08 VBG O2 Saturation < 60.0 % 09/01/19 17:08 VBG Base Excess -20.4 mEq/L 09/01/19 17:08 Barometric Pressure 722.3 mm/Hg 09/01/19 17:08 POC Sodium 137 mmol/L (135-144) 09/01/19 19:54 Sodium 148 mmol/L (136-145) H 09/01/19 17:08 POC Potassium 5.0 mmol/L (3.3-5.0) 09/01/19 19:54 Potassium 4.0 mmol/L (3.5-5.1) 09/01/19 17:08 Chloride 116 mmol/L (98-107) H 09/01/19 17:08 Carbon Dioxide 13 mmol/L (21-32) L 09/01/19 17:08 Anion Gap 19.0 (3-11) H 09/01/19 17:08 BUN 12 mg/dl (7-18) 09/01/19 17:08 Creatinine 1.41 mg/dl (0.6-1.2) H 09/01/19 17:08 Est Cr Clr Drug Dosing Not Reportable 09/01/19 17:08 Est GFR ( Amer) 45.8 09/01/19 17:08 Est GFR (Non-Af Amer) 39.5 09/01/19 17:08 BUN/Creatinine Ratio 8.3 (10-20) L 09/01/19 17:08 Glucose 180 mg/dl (70-99) H 09/01/19 17:08 Lactate 14.9 mmol/L (0.4-2.0) H* 09/01/19 19:58 Calcium 7.6 mg/dl (8.5-10.1) L 09/01/19 17:08 Magnesium 2.5 mg/dl (1.8-2.4) H 09/01/19 17:08 Total Bilirubin 0.6 mg/dl (0.2-1) 09/01/19 17:08 AST 152 U/L (15-37) H 09/01/19 17:08 ALT 89 U/L (12-78) H 09/01/19 17:08 Alkaline Phosphatase 193 U/L (45-117) H 09/01/19 17:08 Troponin I 0.168 ng/ml (0-0.045) H* 09/01/19 17:08 NT-Pro-B Natriuret Pep 400 pg/ml (0-900) 09/01/19 17:08 Total Protein 3.4 gm/dl (6.4-8.2) L 09/01/19 17:08 Albumin 1.6 gm/dl (3.4-5.0) L 09/01/19 17:08 Globulin 1.8 gm/dl (2.5-4.0) L 09/01/19 17:08 Albumin/Globulin Ratio 0.9 (0.9-2) 09/01/19 17:08 Procalcitonin 0.09 ng/ml (0-0.5) 09/01/19 17:08 Influenza Type A (PCR) Neg for Influ A (Neg) 09/01/19 17:29 Influenza Type B (PCR) Neg for Influ B (Neg) 09/01/19 17:29 Blood Type O Negative 09/01/19 17:08 Blood Type Recheck O Negative 09/01/19 18:17 Antibody Screen NEGATIVE 09/01/19 17:08 Crossmatch See Detail 09/01/19 19:40 Draw and Hold Cancelled 09/01/19 17:08
[2019-09-01 23:11] LABS: Basophils # (auto) 0.01 K/uL (0-0.2); Basophils % (auto) 0.1 %; Echinocytes 1+; Eosinophils # (auto) 0.05 K/uL (0-0.5); Eosinophils % (auto) 0.6 %; Immature Granulocytes # (auto) 0.23 K/uL (0.00-0.02); Immature Granulocytes % (auto) 2.8 %; Lymphocytes # (auto) 0.97 K/uL (1.2-3.4); Lymphocytes % (auto) 11.7 %; Monocytes # (auto) 0.23 K/uL (0.11-0.59); Monocytes % (auto) 2.8 %; Neutrophils # (auto) 6.83 K/uL (1.4-6.5)
[2019-09-01 23:43] LABS: Alanine Aminotransferase 2425 U/L (12-78); Albumin Level 0.9 gm/dl (3.4-5.0); Alkaline Phosphatase 125 U/L (45-117); Aspartate Aminotransferase 5038 U/L (15-37); BUN Creatinine Ratio 8.3 (10-20); Bilirubin Direct 0.1 mg/dl (0-0.2); Bilirubin,Total 0.4 mg/dl (0.2-1); Blood Urea Nitrogen 11 mg/dl (7-18); Calcium 7.6 mg/dl (8.5-10.1); Carbon Dioxide 30 mmol/L (21-32); Chloride 106 mmol/L (98-107); Creatine Kinase 1260 U/L (26-192); Est GFR (African American) 51.5; Est GFR (Non-African American) 44.5; Glucose 276 mg/dl (70-99); Magnesium 2.2 mg/dl (1.8-2.4); Phosphorus 9.1 mg/dl (2.5-4.9); Potassium 4.5 mmol/L (3.5-5.1); Sodium 155 mmol/L (136-145)
[2019-09-01] MEDS ORDERED: CALCIUM CHLORIDE 10% 1,000 MG in SODIUM CHLORIDE 0.9% 50 ML IV STA (23:44)
[2019-09-01] MEDS ORDERED: ALBUMIN 5% 250 ML IV ONE (23:45)
[2019-09-02] MEDS ORDERED: PIPERACILLIN/TAZOBACTAM 3.375 GM in DEXTROSE 5% 100 ML IV SCH
[2019-09-02] MEDS: VASOPRESSIN 20 UNITS in 0.9 % SODIUM CHLORIDE 100 ML IV SCH (00:21)
[2019-09-02 00:42] LABS: INR 2.6 (0.9-1.1); Prothrombin Time 26.4 Seconds (9.0-12.0)
[2019-09-02 00:49] LABS: Fibrinogen 53 mg/dl (184-400)
[2019-09-02 01:00] LABS: Hematocrit (blood only) 25.8 % (37-47); Hemoglobin 8.4 g/dL (12.0-16.0)
[2019-09-02 01:07] LABS: iSTAT Art Bld Gas pCO2 Correct 26 mmHg (35-46); iSTAT Art Bld Gas pH Corrected 7.233 (7.35-7.45); iSTAT Arterial Blood Gas HCO3 12 meg/L (19-24); iSTAT Arterial Blood Gas pCO2 34 mmHg (35-46); iSTAT Arterial Blood Gas pH 7.16 (7.35-7.45); iSTAT Arterial Blood Gas pO2 > 420 mmHg (80-95); iSTAT Arterial Blood Gas pO2 C 483; iSTAT Carbon Dioxide 13 mmol/L (24-31); iSTAT FiO2 100 %; iSTAT Hematocrit 20 % (37-47); iSTAT Hemoglobin 6.8 g/dl (12.0-16.0); iSTAT Site R Femoral; iSTAT Sodium 140 mmol/L (135-144)
--- NOTE | 2019-09-02 01:25 | Operative Report (OR) ---
DATE OF OPERATION: 09/01/2019 NAME OF OPERATION: Exploratory laparotomy, evacuation of hemoperitoneum and packing of liver lesion. PREOPERATIVE DIAGNOSES: Hemoperitoneum, intra-abdominal hemorrhage. POSTOPERATIVE DIAGNOSES: Hemoperitoneum, intra-abdominal hemorrhage with giant hepatic hemangioma with rupture. STAFF SURGEON: Dontrell Valdez M.D. AQUATICS LIFEGUARD: HELIO Malone. ANESTHESIA: General. DESCRIPTION OF PROCEDURE: The patient was brought emergently from the Emergency Room straight into the operating room. She was intubated, she was receiving multiple blood products, hypotensive and tachycardic from intra-abdominal hemorrhage. The etiology of which was unknown from her CAT scan, although she did have a history of some possible hepatic lesion and a lymphangioma of the skin. My observation assistant helped with prepping, draping, evacuation of the hematoma and closure of the wound. After placing the patient under anesthesia, she was already intubated, we made a midline incision from xiphoid down to the pubis, entering the abdominal cavity encountering a significant amount of dark venous looking blood. At this point, we aspirated blood and packed all 4 quadrants. On examination, the left upper quadrant, left lower quadrant, right lower quadrant and colic gutters and mesentery were all free of blood. There was no clot within the abdomen- only liquid blood- very dark/ venous appearing. It appeared that the blood wascoming from the right lobe of liver. The liver was significantly abnormal looking especially the right lobe and it appeared to have an enormous spongy appearance as possibly a hemangioma. On inspection, the patient had a giant hole in the upper part of the right lobe which was hemorrhaging venous blood. I did not feel that I could try to suture this or place any type of hemostatic agent. Therefore, tacks were placed. There were at least 9 large sponges placed over and around the right lobe of the liver. This appeared to tamponade the patient, however, her temperature was very low, almost 30 centigrade. She had a coagulopathy, thrombocytopenia. She was receiving blood products during the case maintaining her blood pressure, but she was also on significant pressor support, IV. I did not feel that attempting any kind of resection was a life saving situation for her and felt that we should leave the packs and then leave the abdomen open and place a large wound VAC which was the ABThera into the wound. A 19 round Anmol-Farah drain was also placed just below the right edge of the liver down in the right colic gutter. After the ABThera was placed, it was hooked to suction. She did have some venous looking blood coming from the drain and the suction device. I felt that she should be brought to the intensive care unit, try to warm the patient, correct her coagulopathy. It may be that she will require transfer if she tolerates it for possible interventional radiology or even a hepatectomy if she stabilizes. We did lose and aspirate approximately 3000 mL of bloody fluid. I attest to the content of the Intraoperative Record and any orders documented therein. Any exceptions are noted below. MTDD
--- NOTE | 2019-09-02 01:34 | Communication Note ---
How is he doing todayDate of Service: September 02, 2019 After receiving the patient's repeat labs, patient was noted to have persistent anemia. She was ordered for transfusion of additional 2 units PRBCs. Additionally, she was provided calcium chloride and sodium bicarb. She was started on a bicarb drip with her initial ABG findings consistent with a metabolic acidosis. She is oxygenating well at this time. Lactate continues to climb. I did elect to add epinephrine as the patient was having continued soft pressures. She does appropriately respond to volume. We were able to wean down pressors. I did have a conversation with the patient's and son at [id number] discussing ongoing goals of care. At this point, they are adamant that they would wish to proceed with full code. I did discuss the option of transferring the patient to a higher level of care in the event that we are able to continue to stabilize patient. At this point, the patient has come down on pressors. Her blood pressures been appropriate. She is not acidotic. She has greatly improved from initial arrival. I did make decision to reach out to [facility]. Dr. Lynn kindly accepts the patient in transfer after conversation with acute care surgery. I did reach out again to the family and informed him that the patient has been accepted. Patient to be transferred to [facility] for higher level of care and intervention. I have personally spent 85 minutes of critical care time in the direct management of this patient. This is a life/limb threatening event. This includes time spent evaluating patient, direct bedside care, chart review, placing orders, interpretation of diagnostic studies, discussion with consultants, patient, and family members, as well as other required patient management activities. This time is exclusive of all separately billable procedures, and teaching time and separate from and in addition to any other critical care service time. Coding Level of Care Code Critical Care 1st 30-74 mins Time Spent (min) 85
--- NOTE | 2019-09-02 07:53 | XRay Report ---
XR chest 1V portable HISTORY: 64 years-old Female hypoxia acute respiratory failure COMPARISON: CTA of the chest of same day, chest radiograph same day TECHNIQUE: Portable AP view of the chest FINDINGS: Patient is slightly rotated. Endotracheal tube overlies the midline, 2.0 cm superior to the junior. E nteric tube courses below the diaphragm, distal tip outside the [id number]. Cardiac silhouette is upper limits of normal in size. Calcified plaque of the thoracic aortic arch. No pneumothorax, pleura l effusion, overt pulmonary edema or airspace consolidation typical for pneumonia. Degenerative man es of the shoulders and spine. Radiodense foci project over the abdominal right upper quadrant, possi refugio external to the patient. IMPRESSION: 1. Lines and tubes as above. 2. The lungs appear clear. ACT 112: Negative or not required by law. The above report was generated using voice recognition software. It may contain grammatical, syntax o r spelling errors. Electronically signed by: Romeo Luna M.D. 09/02/2019 7:52 AM
[2019-09-02 11:26] LABS: iSTAT Art Bld Gas pCO2 Correct 26 mmHg (35-46); iSTAT Art Bld Gas pH Corrected 7.147 (7.35-7.45); iSTAT Arterial Blood Gas HCO3 10 meg/L (19-24); iSTAT Arterial Blood Gas pCO2 34 mmHg (35-46); iSTAT Arterial Blood Gas pH 7.07 (7.35-7.45); iSTAT Arterial Blood Gas pO2 312 mmHg (80-95); iSTAT Arterial Blood Gas pO2 C 284; iSTAT Carbon Dioxide 11 mmol/L (24-31); iSTAT FiO2 60 %; iSTAT Hematocrit < 15 % (37-47); iSTAT Potassium 4.9 mmol/L (3.3-5.0); iSTAT Site R Femoral; iSTAT Sodium 139 mmol/L (135-144)
[2019-09-02 11:27] LABS: iSTAT Blood Urea Nitrogen 11 mg/dl (7-18); iSTAT Carbon Dioxide 13 mEq/l (24-31); iSTAT Chloride 110 mmol/L (101-112); iSTAT Creatinine 1.3 mg/dl (0.6-1.3); iSTAT Glucose 165 mg/dl (70-99); iSTAT Hematocrit < 15 % (37-47); iSTAT Ionized Calcium 1.06 mmol/l (1.12-1.32); iSTAT Potassium 3.9 mmol/L (3.3-5.0); iSTAT Sodium 143 mmol/L (135-144)
[2019-09-02 11:27] LABS: iSTAT Arterial Blood Gas HCO3 11 meg/L (19-24); iSTAT Arterial Blood Gas pCO2 48 mmHg (35-46); iSTAT Arterial Blood Gas pH 6.98 (7.35-7.45); iSTAT Arterial Blood Gas pO2 < 32 mmHg (80-95); iSTAT Carbon Dioxide 13 mmol/L (24-31); iSTAT Hematocrit < 15 % (37-47); iSTAT Potassium 4.6 mmol/L (3.3-5.0); iSTAT Sodium 139 mmol/L (135-144)
[2019-09-02 11:27] LABS: iSTAT Blood Urea Nitrogen 10 mg/dl (7-18); iSTAT Carbon Dioxide 13 mEq/l (24-31); iSTAT Chloride 111 mmol/L (101-112); iSTAT Creatinine 1.4 mg/dl (0.6-1.3); iSTAT Glucose 166 mg/dl (70-99); iSTAT Hematocrit < 15 % (37-47); iSTAT Ionized Calcium 1.06 mmol/l (1.12-1.32); iSTAT Potassium 3.9 mmol/L (3.3-5.0); iSTAT Sodium 143 mmol/L (135-144)
--- NOTE | 2019-09-02 12:22 | Electrocardiogram Report ---
Test Reason : Blood Pressure : / mmHG Vent. Rate : 115 BPM Atrial Rate : 115 BPM P-R Int : 162 ms QRS Dur : 070 ms QT Int : 354 ms P-R-T Axes : 077 -08 057 degrees QTc Int : 489 ms Sinus tachycardia Low voltage QRS Poor R wave progression, consider anterior ID vs. lead placement vs. LVH Marked ST abnormality, possible inferior subendocardial injury Abnormal ECG When compared with ECG of 24-NOV-2003 08:37, ST depression in multiple leads now present T-wave inversion in multiple leads no longer present Confirmed by Douglas Gomez ([id number]) on 09/02/2019 12:21:56 PM Referred By: REFERRED SELF Confirmed By:Douglas Gomez
[2019-09-03 07:14] LABS: COVID-19 Patient Symptomatic? YES; PAN-SARS Coronavirus RNA NEGATIVE (NEGATIVE); SARS CoV2 RNA (COVID-19) NEGATIVE (NEGATIVE); SARS Coronavirus RNA Source NASOPHARYNGEAL
--- NOTE | 2019-09-08 08:39 | Discharge Summary (DS) ---
DISPOSITION: Transfer to tertiary [facility]. PRINCIPAL DIAGNOSIS: Hemoperitoneum from ruptured hepatic hemangioma. PROCEDURES: The patient underwent Emergency Room intubation, resuscitation and then she underwent in the operating room laparotomy, evacuation of hemoperitoneum, packing of the liver. HOSPITAL COURSE: On 09/01/2019, the patient was brought to the Emergency Room via ambulance after 911 call with mainly shortness of breath and respiratory difficulty. She had progressive respiratory failure in the Emergency Room as well as hypotension. She apparently did receive some CPR prior to arrival at the Emergency Room. The patient did decompensate and required emergency intubation, and also she underwent an ultrasound of the abdomen, which was severely distended, finding what was felt to be blood. Transfusion was begun. The patient was taken to the CAT scan where it was evident that she had intra-abdominal blood. The etiology of which was unknown. After evaluation and treatment by the intensive care physician, anesthesiology and ER physician, we decided to try to take the patient to the operating room for emergency laparotomy. In the operating room, she underwent laparotomy finding a significant amount of liquified blood with very minimal clot within the abdomen. After exploration, it appeared that it was coming from the liver and it appeared that the patient had a very large hemangioma of the liver almost completely replacing her right lobe of the liver. At this point, her blood pressure was somewhat improved; however, she was receiving blood products and IV pressor support, and her temperature was 30 centigrade. I did not feel further intraoperative intervention would help except for packing around the liver and placing a wound VAC in trying to stabilize the patient and warm her. She did improve somewhat in the operating room and we were able to take her to the intensive care unit. Over the next 4 hours, the patient did require some additional blood products to support her blood pressure, which did somewhat improve. She was still on some IV pressor support, but it was felt that transfer to a tertiary care center would be her best opportunity in that interventional radiology and surgical intervention may be necessary. She was airlifted to [facility] for further treatment. In summary, it appeared the patient had a very large hemangioma of the liver, which had ruptured at home from which she was bleeding and she most likely had an underlying coagulopathy and that she had almost no clot in her abdomen.
== END 2019-09-02 02:40 | disposition short-term general hospital (02) | DRG 356 ==
LOC: ED 16:42 → OR 20:34 → 1E 22:23